=== PATIENT | female | born 1950 | race Caucasian/White ===

== ENCOUNTER 2022-11-11 09:09 | Outpatient (REF) | payer OTHER, SELFPAY ==
[2022-11-11 14:50] LABS: MANUAL DIFF FLAG NO
[2022-11-11 14:59] LABS: Basophils Percent Auto 0.6 % (0-2); Eosinophils Absolute Auto 0.2 X10*3/uL (0.0-0.4); Eosinophils Percent Auto 2.2 % (0-4); Hematocrit 34.4 % (37.0-47.0); Hemoglobin 9.9 g/dl (12.0-16.0); Imm Gran Abs Auto 0.02 X10*3/uL (0.00-0.03); Imm Gran Pct Auto 0.3 % (0.0-0.4); Lymphocytes Absolute Auto 1.7 X10*3/uL (1.2-4.9); Lymphocytes Percent Auto 24.8 % (20-40); Mean Corpuscular HGB Conc 28.8 g/dl (31.0-35.0); Mean Corpuscular Hemoglobin 22.2 pg (27.0-33.0); Mean Corpuscular Volume 77.1 fL (80.0-98.0); Monocytes Absolute Auto 0.4 X10*3/uL (0.1-1.2); Monocytes Percent Auto 6.1 % (2-11); Neutrophils Absolute Auto 4.4 x10*3/uL (2.0-8.3); Platelet Count 166 X10*3/uL (160-400); Red Blood Count 4.46 X10*6/uL (4.20-5.50); Red Cell Distribution Width 16.6 % (11.0-16.0); White Blood Count 6.7 X10*3/uL (4.8-10.8)
[2022-11-11 15:04] LABS: INTERNATIONAL NORM RATIO 1.4 (0.9-1.1); Prothrombin Time 16.2 SEC (10.0-13.1)
[2022-11-11 15:32] LABS: Anion Gap 15 (12-20); Blood Urea Nitrogen 11 mg/dL (9-16); Calcium 9.9 mg/dL (8.4-10.2); Carbon Dioxide 23 mmol/L (22-29); Chloride 108 mmol/L (96-108); Estimated Glomerular Filt Rate > 60; Glucose Fasting 82 mg/dL (60-99); Potassium 3.4 mmol/L (3.3-5.1); Sodium 143 mmol/L (135-145)
== END 2022-11-11 09:10 | disposition home or self-care (01) ==
LOC: HO.CHCLDS 09:09
PROVIDERS: Visit Provider Internal Medicine Cardiovascular Disease
DX: I25.10 Atherosclerotic heart disease of native coronary artery without angina pectoris (principal); I50.9 Heart failure, unspecified
CPT/HCPCS: 36415; 80048; 85025; 85610

== ENCOUNTER 2022-12-18 12:50 | Outpatient (AMB) | payer OTHER, SELFPAY ==
--- NOTE | 2022-12-18 12:54 | MHC.OFFVIS ---
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 Pt's daughter helps nursery school teacher and patient's history. Pt reports she snores loudly and wakes up with very dry mouth. She wakes up gasping and feeling chocking. Pt had a split night sleep study done in 2020 in [place]. The baseline portion of the sleep study was severe degree of sleep apnea. The AHI was 35/hr and oxygen kenyon was 80%. The duration of O2 sat <88 % was 35 min. She was on BiPAP 11/7 cmH2O. Pt states that she slept well with the BiPAP and daytime tiredness has improved. However, her BiPAP was broken about a month ago, and can't use it. She had the original BiPAP from [place] in 2020. Pt reports that she lost about 15 lb since the last sleep study. Sleep questionnaire: Have you ever been diagnosed with a sleep disorder? Yes. AVIVA. Have you ever had a sleep study in the past? Yes, in 2020 in [place]. Have you ever been treated for a sleep disorder? Yes. BiPAP. Do you take medications for a sleep disorder? Melatonin and doxazosin. Do you snore? Yes. Do you wake up gasping at night? Yes. Do you have episodes of apneas? Yes. If yes, are they witnessed? Yes, by her family members. Do you have episodes of nocturnal chest pain or dyspnea? Yes. Do you have difficulty initiating sleep? Yes. Do you have difficulty maintaining sleep? Yes. Do you wake up tired? Yes. Do you have headaches upon awakening? No. Do you wake up with dry mouth or throat? Yes Do you have GERD? Yes. Do you have nocturia? Yes. Do you have nocturnal leg cramps? No. Do you have symptoms of restless legs? No. Do you act out your dreams? No. Sleep hygiene questionnaire: What is your usual sleep routine? Usual bedtime is at 10:30 -11 pm; Usual wake up time is at 4-5 am. Do you take naps? Yes, sometimes. Is your sleep environment cool, dark, and quiet? Yes. Do you exercise? No. Do you take caffeine or other stimulants? Yes, one cup of coffee in the morning. Do you use electronics in bed? Yes, watching TV. What is your work schedule? N/A. Hypersomnolence questionnaire: Do you have daytime tiredness or fatigue? Yes. Do you easily fall asleep when inactive? No. Have you ever had episodes of sudden weakness? No. Have you ever had episodes of sudden weakness associated with strong emotions? No. PFSH Medical History (Updated 12/18/22 @ 13:31 by Maksim Holloway CNP) CAD (coronary artery disease) FHx: total knee replacement Surgical History (Updated 12/18/22 @ 12:57 by Shaniqua Salomon CMA) Stented coronary artery Family History (Updated 12/18/22 @ 12:59 by Shaniqua Salomon CMA) Mother Depression Family/Other Depression Social History (Updated 12/18/22 @ 13:00 by Shaniqua Salomon CMA) Alcohol intake: never Patient Tobacco Use Status: Never used Tobacco Review of Systems Const All systems reviewed & are unremarkable except as noted in HPI and below ENT Reports Normal hearing present Neuro Reports Normal hearing present Physical Exam Vital Signs: Last Vital Signs Pulse 75 12/18/22 13:00 BP 130/80 12/18/22 13:00 Pulse Ox 99 12/18/22 13:00 Oxygen Delivery Method Room Air 12/18/22 13:00 BMI result Body Mass Index 29.9 Const General: cooperative and tired appearing Orientation/consciousness: patient oriented x3 Limitations: language barrier Resp Effort & Inspection: normal respiratory effort and able to speak in complete sentences Neuro General: patient oriented x3, gait normal, moves all extremities and no focal motor deficits Cranial nerves: Yes Bilaterally intact EOM present, Yes Normal facial strength present, Yes Midline tongue present and Yes Normal hearing present Cognition (Neuro): normal cognition Motor exam (neuro): 5/5 motor strength present throughout, Pronator motor function not present and no tremor noted Psych Appearance: grossly normal Mental Status: mental status grossly normal Speech and movement: Normal speech and movement present Affect: normal affect Attitude: cooperative Assessment & Plan Assessment & Plan (1) Insomnia: Code(s): G47.00 - Insomnia, unspecified (2) AVIVA treated with BiPAP: Comment: Severe degree of sleep apnea. AHI was 35/hr and oxygen kenyon was 80%. Code(s): G47.33 - Obstructive sleep apnea (adult) (pediatric) Plan Pt is advised to undergo in lab sleep study to assess for sleep apnea. Will f/u with pt after study to discuss results and appropriate treatment options. Sleep hygiene education provided. Continue to take melatonin 5 mg and doxazosin qHS. Advised patient to limit electronic use before bedtime. Pt to call with any worsening concerns or questions. Orders: Orders RT PSG in-lab sleep study 12/18/22 E11.9 - Type 2 diabetes mellitus without complications, G47.00 - Insomnia, unspecified, G47.33 - Obstructive sleep apnea (adult) (pediatric), I10 - Essential (primary) hypertension, I25.10 - Atherosclerotic heart disease of [place] coronary artery without angina pectoris Coding Level of Care Code New Pt Level 4 (76288) Diagnoses Insomnia G47.00 AVIVA treated with BiPAP G47.33
[2022-12-18 13:00] VITALS: BP 130/80; PULSE 75; O2SAT 99; BMI 29.9
== END 2022-12-18 13:42 | disposition home or self-care (01) ==
PROVIDERS: Visit Provider Nurse Practitioner Family
DX: G47.00 Insomnia, unspecified (principal); G47.33 Obstructive sleep apnea (adult) (pediatric)
CPT/HCPCS: 99204

== ENCOUNTER → 2022-12-18 12:50 | Outpatient (BNVA) | payer OTHER, SELFPAY | PROVIDERS: Visit Provider Nurse Practitioner Family | DX: G47.33 Obstructive sleep apnea (adult) (pediatric) (principal); G47.00 Insomnia, unspecified; Z79.899 Other long term (current) drug therapy | CPT/HCPCS: 99202 ==

== ENCOUNTER → 2022-12-29 19:30 | Outpatient (REF) | payer OTHER, SELFPAY | LOC: HO.SL 19:30 | PROVIDERS: PCP Pediatrics; Visit Provider Nurse Practitioner Family | DX: G47.33 Obstructive sleep apnea (adult) (pediatric) (principal); G47.00 Insomnia, unspecified; I25.10 Atherosclerotic heart disease of native coronary artery without angina pectoris; E11.9 Type 2 diabetes mellitus without complications; I10 Essential (primary) hypertension | CPT/HCPCS: 95810 ==

== ENCOUNTER → 2022-12-29 22:30 | Outpatient (BNV) | payer OTHER, SELFPAY | PROVIDERS: PCP Pediatrics; Visit Provider Psychiatry & Neurology Neurology | DX: G47.33 Obstructive sleep apnea (adult) (pediatric) (principal) | CPT/HCPCS: 95810 ==

== ENCOUNTER 2023-02-24 13:38 | Outpatient (AMB) | payer OTHER, SELFPAY ==
--- NOTE | 2023-02-24 13:39 | A.OFFVIS_ITS ---
Intake Vital Signs 02/24/23 13:41 Weight 156 lb 6 oz BP 150/80 H Blood Pressure Location Lt brachial Position Sitting Pulse 86 Pulse Source Pulse Oximeter Pulse Oximetry (%) 97 Oxygen Delivery Method Room Air Intake Visit Reasons: follow up Intake Note: Pt presents today for AVIVA fup pt is sleeping well . Allergies No Known Allergies Allergy (Verified 02/24/23 13:44) HPI HPI Comments History of Present Illness Details 73 y/o female patient presents with her daughter for follow up of sleep study. Pt underwent split night sleep study. The baseline portion of the study was significant for severe degree of sleep apnea. The AHI was 28/hr and oxygen kenyon was 78%. Pt underwent titration study, the breathing and oxygenation stabilized with CPAP at [id number]. Pt reports she snores loudly and wakes up with very dry mouth. She wakes up gasping and feeling chocking. CPAP ordered in December, patient has not received CPAP yet. [facility] Medical History (Reviewed 02/24/23 @ 13:[address] [facility]) CAD (coronary artery disease) FHx: total knee replacement Surgical History (Reviewed 02/24/23 @ 13:[address] [facility]) Stented coronary artery Family History Mother Depression Family/Other Depression Alcohol intake: never Patient Tobacco Use Status: Never used Tobacco Review of Systems Const All systems reviewed & are unremarkable except as noted in HPI and below ENT Reports Normal hearing present Neuro Reports Normal hearing present Physical Exam Vital Signs: Last Vital Signs Pulse 86 02/24/23 13:41 BP 150/80 H 02/24/23 13:41 Pulse Ox 97 02/24/23 13:41 Oxygen Delivery Method Room Air 02/24/23 13:41 Const General: cooperative and tired appearing Orientation/consciousness: patient oriented x3 Limitations: language barrier Resp Effort & Inspection: normal respiratory effort and able to speak in complete sentences Neuro General: patient oriented x3, gait normal, moves all extremities and no focal motor deficits Cranial nerves: Yes Bilaterally intact EOM present, Yes Normal facial strength present, Yes Midline tongue present and Yes Normal hearing present Cognition (Neuro): normal cognition Motor exam (neuro): 5/5 motor strength present throughout, Pronator motor function not present and no tremor noted Psych Appearance: grossly normal Mental Status: mental status grossly normal Speech and movement: Normal speech and movement present Affect: normal affect Attitude: cooperative Assessment & Plan Assessment & Plan (1) AVIVA on CPAP: Comment: Severe degree of sleep apnea. The AHI was 28/hr and oxygen kenyon was 78% Code(s): G47.33 - Obstructive sleep apnea (adult) (pediatric) Plan CPAP prescription was sent to [facility]. Will f/u of CPAP status. Advised patient to start CPAP at [id number]. Stressed compliance, use CPAP nightly and more than 4 hrs. Wt reduction advised. Coding Level of Care Code Est Pt Level 3 (24916) Diagnoses AVIVA on CPAP G47.33
[2023-02-24 13:41] VITALS: BP 150/80; PULSE 86; O2SAT 97
== END 2023-02-24 14:03 | disposition home or self-care (01) ==
PROVIDERS: PCP Pediatrics; Visit Provider Nurse Practitioner Family
DX: G47.33 Obstructive sleep apnea (adult) (pediatric) (principal)
CPT/HCPCS: 99213

== ENCOUNTER → 2023-02-24 13:38 | Outpatient (BNVA) | payer OTHER, SELFPAY | PROVIDERS: PCP Pediatrics; Visit Provider Nurse Practitioner Family | DX: G47.33 Obstructive sleep apnea (adult) (pediatric) (principal); I25.10 Atherosclerotic heart disease of native coronary artery without angina pectoris; I10 Essential (primary) hypertension; Z95.5 Presence of coronary angioplasty implant and graft | CPT/HCPCS: 99212 ==

== ENCOUNTER 2023-03-12 09:51 | Outpatient (REF) | payer OTHER, SELFPAY ==
[2023-03-12 15:02] LABS: MANUAL DIFF FLAG NO
[2023-03-12 15:12] LABS: Basophils Absolute Auto 0.1 X10*3/uL (0.0-0.2); Basophils Percent Auto 0.9 % (0-2); Eosinophils Absolute Auto 0.4 X10*3/uL (0.0-0.4); Eosinophils Percent Auto 7.4 % (0-4); Hematocrit 30.4 % (37.0-47.0); Imm Gran Abs Auto 0.02 X10*3/uL (0.00-0.03); Imm Gran Pct Auto 0.4 % (0.0-0.4); Lymphocytes Percent Auto 18.4 % (20-40); Mean Corpuscular HGB Conc 26.3 g/dl (31.0-35.0); Mean Corpuscular Hemoglobin 18.7 pg (27.0-33.0); Mean Corpuscular Volume 71.2 fL (80.0-98.0); Monocytes Absolute Auto 0.5 X10*3/uL (0.1-1.2); Monocytes Percent Auto 8.3 % (2-11); Neutrophils Absolute Auto 3.7 x10*3/uL (2.0-8.3); Neutrophils Percent Auto 64.6 % (45-73); Platelet Count 208 X10*3/uL (160-400); Red Blood Count 4.27 X10*6/uL (4.20-5.50); Red Cell Distribution Width 19.5 % (11.0-16.0); White Blood Count 5.7 X10*3/uL (4.8-10.8)
[2023-03-12 15:39] LABS: TSH reflex Free T4 1.38 uIU/mL (0.32-4.0)
== END 2023-03-12 09:52 | disposition home or self-care (01) ==
LOC: HO.CHCLDS 09:51
PROVIDERS: Visit Provider Pediatrics
DX: D50.0 Iron deficiency anemia secondary to blood loss (chronic) (principal); R01.1 Cardiac murmur, unspecified; E11.9 Type 2 diabetes mellitus without complications
CPT/HCPCS: 36415; 84443; 85025

== ENCOUNTER 2023-04-23 10:57 | Outpatient (AMB) | payer OTHER, SELFPAY ==
[2023-04-23 11:02] VITALS: BP 160/78; PULSE 77; O2SAT 98; BMI 29.3
--- NOTE | 2023-04-23 11:02 | MHC.OFFVIS ---
Intake Vital Signs 04/23/23 11:02 Height 5 ft Weight 150 lb 2 oz BMI 29.3 BP 160/78 H Blood Pressure Location Lt brachial Pulse 77 Pulse Source Pulse Oximeter Pulse Oximetry (%) 98 Oxygen Delivery Method Room Air Intake Visit Reasons: 4m follow up AVIVA on CPAP-Confirmed Intake Note: Patient presents for 4 mo fu- AVIVA on CPAP [employer] Professor Required: No Accompanied by: Daughter Allergies No Known Allergies Allergy (Verified 04/23/23 11:06) HPI HPI Comments History of Present Illness Details 73 y/o female patient presents with her daughter for follow up of sleep study. Pt underwent split night sleep study. The baseline portion of the study was significant for severe degree of sleep apnea. The AHI was 28/hr and oxygen kenyon was 78%. Pt underwent titration study, the breathing and oxygenation stabilized with CPAP at [id number]. Pt tried CPAP at [id number], but not tolerated. CPAP pressures changed to 7 cmH2O. The CPAP compliance and therapy response (01/22/23-04/21/23) reviewed. The usage days 93% and the average usage hours 8 hrs and 20 min. The residual AHI was 1.3/hr. Pt reports she feels much better, and sleeps well. She wakes up refreshed and daytime sleepiness has improved. [facility] Medical History CAD (coronary artery disease) FHx: total knee replacement Surgical History Stented coronary artery Family History Mother Depression Family/Other Depression Social History Alcohol intake: never Patient Tobacco Use Status: Never used Tobacco Review of Systems Const All systems reviewed & are unremarkable except as noted in HPI and below ENT Reports Normal hearing present Neuro Reports Normal hearing present Physical Exam Vital Signs: Last Vital Signs Pulse 77 04/23/23 11:02 BP 160/78 H 04/23/23 11:02 Pulse Ox 98 04/23/23 11:02 Oxygen Delivery Method Room Air 04/23/23 11:02 BMI result Body Mass Index 29.3 Const General: cooperative Orientation/consciousness: patient oriented x3 Limitations: language barrier Resp Effort & Inspection: normal respiratory effort and able to speak in complete sentences Neuro General: patient oriented x3, gait normal, moves all extremities and no focal motor deficits Cranial nerves: Yes Bilaterally intact EOM present, Yes Normal facial strength present, Yes Midline tongue present and Yes Normal hearing present Cognition (Neuro): normal cognition Motor exam (neuro): 5/5 motor strength present throughout, Pronator motor function not present and no tremor noted Psych Appearance: grossly normal Mental Status: mental status grossly normal Speech and movement: Normal speech and movement present Affect: normal affect Attitude: cooperative Assessment & Plan Assessment & Plan (1) AVIVA on CPAP: Comment: Severe degree of sleep apnea. The AHI was 28/hr and oxygen kenyon was 78% Code(s): G47.33 - Obstructive sleep apnea (adult) (pediatric) Plan Continue to use CPAP at 7cmH2O as patient experiences good clinical effects. AHI reduced and having good qulaity sleep with daytime symptoms has improved. Stressed compliance, use CPAP nightly and more than 4 hrs. Wt reduction advised. Coding Level of Care Code Est Pt Level 3 (28825) Diagnoses AVIVA on CPAP G47.33
== END 2023-04-23 11:28 | disposition home or self-care (01) ==
PROVIDERS: Visit Provider Nurse Practitioner Family
DX: G47.33 Obstructive sleep apnea (adult) (pediatric) (principal)
CPT/HCPCS: 99213

== ENCOUNTER → 2023-04-23 10:57 | Outpatient (BNVA) | payer OTHER, SELFPAY | PROVIDERS: Visit Provider Nurse Practitioner Family | DX: G47.33 Obstructive sleep apnea (adult) (pediatric) (principal) | CPT/HCPCS: 99212 ==

== ENCOUNTER 2023-05-09 09:20 | Outpatient (REF) | payer OTHER, SELFPAY ==
[2023-05-09 14:50] LABS: MANUAL DIFF FLAG NO
[2023-05-09 15:01] LABS: Basophils Percent Auto 0.6 % (0-2); Eosinophils Absolute Auto 0.2 X10*3/uL (0.0-0.4); Eosinophils Percent Auto 3.3 % (0-4); Hematocrit 37.2 % (37.0-47.0); Hemoglobin 10.6 g/dl (12.0-16.0); Imm Gran Abs Auto 0.02 X10*3/uL (0.00-0.03); Imm Gran Pct Auto 0.4 % (0.0-0.4); Lymphocytes Absolute Auto 1.1 X10*3/uL (1.2-4.9); Mean Corpuscular HGB Conc 28.5 g/dl (31.0-35.0); Mean Corpuscular Hemoglobin 21.9 pg (27.0-33.0); Monocytes Absolute Auto 0.3 X10*3/uL (0.1-1.2); Monocytes Percent Auto 5.6 % (2-11); Neutrophils Absolute Auto 3.8 x10*3/uL (2.0-8.3); Neutrophils Percent Auto 70.1 % (45-73); Platelet Count 183 X10*3/uL (160-400); Red Blood Count 4.83 X10*6/uL (4.20-5.50); White Blood Count 5.4 X10*3/uL (4.8-10.8)
[2023-05-09 15:14] LABS: Iron 84 mcg/dL (30-160); Percent Iron Saturation 24 % (15-50); Total Iron Binding Capacity 356 mcg/dL (228-428); Unsaturated Iron Binding 272 ug/dL
[2023-05-09 15:57] LABS: Folate 14.6 ng/mL (> or = 4.0); Vitamin B12 157 pg/mL (200-900)
== END 2023-05-09 09:21 | disposition home or self-care (01) ==
LOC: HO.CHCLDS 09:20
PROVIDERS: Visit Provider Pediatrics
DX: D50.0 Iron deficiency anemia secondary to blood loss (chronic) (principal)
CPT/HCPCS: 36415; 82607; 82746; 83540; 85025

== ENCOUNTER 2023-08-06 09:15 | Outpatient (REF) | payer OTHER, SELFPAY ==
[2023-08-06 15:05] LABS: Alanine Aminotransferase 12 U/L (0-31); Albumin Level 4.3 g/dL (3.5-5.0); Alkaline Phosphatase 49 U/L (39-117); Anion Gap 14 (12-20); Aspartate Amino Transferase 17 U/L (5-31); Bilirubin Direct 0.1 mg/dL (0.0-0.5); Bilirubin Total 0.3 mg/dL (0.0-1.0); Blood Urea Nitrogen 25 mg/dL (9-16); Calcium 9.5 mg/dL (8.4-10.2); Carbon Dioxide 27 mmol/L (22-29); Chloride 105 mmol/L (96-108); Cholesterol 150 mg/dL (<200); Estimated Glomerular Filt Rate > 60; Glucose Random 88 mg/dL (60-115); HDL Cholesterol 62 mg/dL (>40); LDL Cholesterol Calculated 67 mg/dL (<100); Potassium 4.1 mmol/L (3.3-5.1); Sodium 142 mmol/L (135-145); Total Protein 7.4 g/dL (6.5-8.0); Triglycerides 109 mg/dL (<150)
[2023-08-06 15:29] LABS: Creatinine Urine 46.75 mg/dL; Microalbumin Urine < 5.0 mg/L
== END 2023-08-06 09:16 | disposition home or self-care (01) ==
LOC: HO.CHCLDS 09:15
PROVIDERS: Visit Provider Pediatrics
DX: I10 Essential (primary) hypertension (principal); E11.59 Type 2 diabetes mellitus with other circulatory complications
CPT/HCPCS: 36415; 80048; 80061; 80076; 82043; 82570

== ENCOUNTER 2024-01-14 11:33 | Outpatient (REF) | payer OTHER, SELFPAY ==
[2024-01-14 14:13] LABS: MANUAL DIFF FLAG NO
[2024-01-14 14:38] LABS: Basophils Percent Auto 0.6 % (0-2); Eosinophils Absolute Auto 0.1 X10*3/uL (0.0-0.4); Eosinophils Percent Auto 1.9 % (0-4); Hematocrit 38.2 % (37.0-47.0); Hemoglobin 12.2 g/dl (12.0-16.0); Imm Gran Abs Auto 0.03 X10*3/uL (0.00-0.03); Imm Gran Pct Auto 0.5 % (0.0-0.4); Lymphocytes Absolute Auto 1.3 X10*3/uL (1.2-4.9); Lymphocytes Percent Auto 20.4 % (20-40); Mean Corpuscular HGB Conc 31.9 g/dl (31.0-35.0); Mean Corpuscular Hemoglobin 26.9 pg (27.0-33.0); Mean Corpuscular Volume 84.3 fL (80.0-98.0); Mean Platelet Volume 13.6 fL (9.4-12.3); Monocytes Absolute Auto 0.4 X10*3/uL (0.1-1.2); Monocytes Percent Auto 5.7 % (2-11); Neutrophils Absolute Auto 4.5 x10*3/uL (2.0-8.3); Neutrophils Percent Auto 70.9 % (45-73); Platelet Count 161 X10*3/uL (160-400); Red Blood Count 4.53 X10*6/uL (4.20-5.50); Red Cell Distribution Width 14.3 % (11.0-16.0); White Blood Count 6.4 X10*3/uL (4.8-10.8)
[2024-01-14 15:11] LABS: Iron 97 mcg/dL (30-160); Percent Iron Saturation 29 % (15-50); Total Iron Binding Capacity 331 mcg/dL (228-428); Unsaturated Iron Binding 234 ug/dL
[2024-01-14 15:16] LABS: Folate > 20.0 ng/mL (> or = 4.0); Vitamin B12 > 2000 pg/mL (200-900)
== END 2024-01-14 11:34 | disposition home or self-care (01) ==
LOC: HO.CHCLDS 11:33
PROVIDERS: Visit Provider Pediatrics
DX: M85.80 Other specified disorders of bone density and structure, unspecified site (principal); E53.8 Deficiency of other specified B group vitamins; M25.552 Pain in left hip; Z78.0 Asymptomatic menopausal state
CPT/HCPCS: 36415; 82306; 82607; 82746; 83540; 85025

== ENCOUNTER 2024-03-31 10:00 | Outpatient (AMB) | payer OTHER, SELFPAY ==
--- NOTE | 2024-03-31 10:23 | MHC.OFFVIS ---
Vital Signs 03/31/24 10:24 Height 5 ft Weight 157 lb BMI 30.7 BP 124/76 Blood Pressure Location Rt brachial Position Sitting Intake Visit Reasons: 1 yr f/u for AVIVA Intake Note: Patient presents for 1 year follow up Allergies No Known Allergies Allergy (Verified 03/31/24 10:25) Medication List - Last Reconciled 03/31/24 by Ronald Woods PA-C carvedilol 25 mg PO BID cilostazol 100 mg PO BID clopidogrel 75 mg PO DAILY doxazosin 4 mg PO BEDTIME [id number]-theeukrdb 12.5-2.5-1,000 mg ER (Trijardy XR) 2 tabs PO DAILY ferrous sulfate (FeroSul) mg PO folic acid 1 mg PO DAILY gabapentin 800 mg PO BEDTIME hydralazine 50 mg PO TID hydrochlorothiazide 25 mg PO DAILY losartan 100 mg PO DAILY melatonin 5 mg PO .at night multivitamin (Daily Multi-Vitamin tablet) 1 tab PO DAILY pantoprazole 40 mg PO DAILY rivaroxaban (Xarelto) 2.5 mg PO BID rosuvastatin 40 mg PO DAILY HPI Comments Details: 73 y/o female patient presents with her daughter for follow up of sleep study. She is having mask difficulties with the nose pillow, doesn't work well for her, dries out the mouth, causing her to have poor sleep. She goes to bed at 9pm, has 2 bathroom trips at night, goes back to sleep and has difficulty going back to sleep. She washes all equipment and changes filters as needed. Pt reports she feels much better, and sleeps well. She wakes up refreshed and daytime sleepiness has improved overall, however continues to be frustrated with the mask. She lives with her daughter and has help with all her ADLs. Mood is good, memory is okay. Denies any falls. Pain management Apr 15, 2024, [facility]. The CPAP compliance and therapy response (12/31/23-03/29/24) reviewed. The usage days 81 and 90% and the average usage hours 7 hrs and 14 min. The residual AHI was 4.8. Avg.Pressures are [id number] Avg. leaks 40 L/min [facility] Medical History CAD (coronary artery disease) FHx: total knee replacement Surgical History Stented coronary artery Family History Mother Depression Family/Other Depression Social History Alcohol intake: never Patient Tobacco Use Status: Never used Tobacco Review of Systems Const All systems reviewed & are unremarkable except as noted in HPI and below Physical Exam Vital Signs: Last Vital Signs BP 124/76 03/31/24 10:24 BMI result Body Mass Index 30.7 Const General: cooperative, comfortable and no acute distress Nutritional Appearance: average body habitus Orientation/consciousness: patient oriented x3 Resp Effort & Inspection: normal respiratory effort and able to speak in complete sentences Neuro General: patient oriented x3 Psych Attitude: cooperative Insight: Good insight present (Psych) Judgement: Good judgement present (Psych) Results Reviewed Results Reviewed: The CPAP compliance and therapy response (12/31/23-03/29/24) reviewed. The usage days 90% and the average usage hours 7 hrs and 14 min. The residual AHI was 4.8. Press [id number] Nose pillow coming undone, needs new mask. Assessment & Plan Assessment & Plan (1) AVIVA on CPAP: Comment: Severe degree of sleep apnea. The AHI was 28/hr and oxygen ken[place] was 78% Code(s): G47.33 - Obstructive sleep apnea (adult) (pediatric) Category: Medical (2) Insomnia: Code(s): G47.00 - Insomnia, unspecified Category: Medical (3) Neck pain on right side: Code(s): M54.2 - Cervicalgia Category: Medical Plan Sleep Apnea Mask Fitting as nose pillows are not comfortable. Continue to use APAP [id number] as patient experiences good clinical effects. Stressed compliance, use CPAP nightly and more than 4 hours per night, also while napping during the day. PT for neck pain and limited ROM on Extension and rotation to the right. Will follow up in 6 months, call the office if you have any concerns or message us on the portal. Orders: Orders PT Evaluation and Treatment Today M54.2 - Cervicalgia Coding Level of Care Code Est Pt Level 3 (30197) Diagnoses AVIVA on CPAP G47.33 Insomnia G47.00 Neck pain on right side M54.2
[2024-03-31 10:24] VITALS: BP 124/76; BMI 30.7
== END 2024-03-31 10:50 | disposition home or self-care (01) ==
PROVIDERS: Absent Provider Psychiatry & Neurology Neurology; PCP Pediatrics; Visit Provider Physician Assistant Medical
DX: G47.33 Obstructive sleep apnea (adult) (pediatric) (principal); G47.00 Insomnia, unspecified; M54.2 Cervicalgia
CPT/HCPCS: 99213

== ENCOUNTER → 2024-03-31 10:00 | Outpatient (BNVA) | payer OTHER, SELFPAY | PROVIDERS: Absent Provider Psychiatry & Neurology Neurology; PCP Pediatrics; Visit Provider Physician Assistant Medical | DX: G47.33 Obstructive sleep apnea (adult) (pediatric) (principal); G47.00 Insomnia, unspecified; M54.2 Cervicalgia; Z99.89 Dependence on other enabling machines and devices | CPT/HCPCS: 99212 ==

== ENCOUNTER 2024-12-06 10:15 | Outpatient (AMB) | payer OTHER, SELFPAY ==
--- NOTE | 2024-12-06 10:28 | MHC.OFFVIS ---
Vital Signs 12/06/24 10:29 Height 5 ft Weight 155 lb 4 oz BMI 30.3 BP 116/72 Blood Pressure Location Lt brachial Position Sitting Pulse 61 Pulse Source Pulse Oximeter Pulse Oximetry (%) 96 Oxygen Delivery Method Room Air Intake Visit Reasons: 6m follow up AVIVA Intake Note: Patient presents follow up AVIVA. COmpliance in chart(/90days, >=4hrs-95%, Average usage-6hrs 57min, Med pressure-12, Med leaks-18.7, AHI-2.5). Supervisor [employer] Required: Yes Supervisor [employer] Language: Automotive Hardware Engineer Services: Supervisor [employer] Offered & Declined Supervisor [employer] Name: daughter Accompanied by: Daughter Allergies No Known Allergies Allergy (Verified 12/06/24 10:32) HPI Comments Details: 74 y/o female patient presents for a f/u of aviva. Flora her daughter is here today and helps with history. The CPAP compliance and therapy response (08/2024- 11/2024). The usage days 90/90 and > average usage hours 6 hrs and 57 min. Med press [id number], med leaks 18.7 The residual AHI was 2.5 She washes her mask, rinses hoses, changes filters and fills reservoir with water daily. She now has a new nose pillow / nose mask and her mouth gets very dry at night, causing her to have poor sleep and choke, cough. She goes to bed at 9pm, has 2 bathroom trips at night, goes back to sleep and has difficulty staying asleep. Pt reports she feels much better when she wakes up refreshed and sleep has improved. She does not take naps through out the day. She continues to be very frustrated with her nose pillow mask, will send her for a fitting today and reviewed getting chin straps to close the mouth. Also explained to patient to use otc xylitol tabs at night to increase mucosal lubrication and adjust temperatures on the cpap settings. She lives with her daughter and has help with all her ADLs. Diet and mood are stable. 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 Memory is poor at baseline, she was prescribed Aricept for cognitive deficits by her Psychiatrist. We reviewed labs today. [facility] Medical History CAD (coronary artery disease) FHx: total knee replacement Surgical History Stented coronary artery Family History Mother Depression Family/Other Depression Social History Alcohol intake: never Patient Tobacco Use Status: Never used Tobacco Physical Exam Vital Signs: Last Vital Signs Pulse 61 12/06/24 10:29 BP 116/72 12/06/24 10:29 Pulse Ox 96 12/06/24 10:29 Oxygen Delivery Method Room Air 12/06/24 10:29 BMI result Body Mass Index 30.3 Const General: cooperative, comfortable and no acute distress Nutritional Appearance: average body habitus Orientation/consciousness: patient oriented x3 Eyes Pupils: Equal, round and reactive pupils present Resp Effort & Inspection: normal respiratory effort and able to speak in complete sentences Neuro Other: uses cane to ambulate, gait is unbalanced General: patient oriented x3 and moves all extremities Cranial nerves: Yes Facial sensation intact/muscles of mastication intact, Yes Equal, round and reactive pupils present, Yes Normal accommodation reflex present, Yes Normal facial strength present, Yes Midline tongue present, Yes Ability to bilaterally rotate head present and Yes Ability to bilaterally elevate shoulders present Gait exam (Neuro): Antalgic gait present and Assistive device used Motor exam (neuro): Abnormal motor strength present and Abnormal muscle tone present Coordination: [id number] test normal Psych Appearance: grossly normal Speech and movement: Other speech and movement exam findings present (Psych) (language barrier) Attitude: cooperative Thought process: Normal thought process present Thought content: Normal thought content present Orientation What is the (year) (season) (date) (day) (month)?: year, season, day and month Where are we (state) (county) (town or city) (hospital) (floor)?: town or city and floor Registration Name of 3 unrelated objects clearly and slowly, then ask patient to repeat all 3 of them. (1st repeat determines score. Make sure they can repeat all three): object 1, object 2 and object 3 Attention & Calculation (CHOOSE ONE) Spell WORLD backwards (DLROW): 5 letters Recall Ask patient to repeat the 3 items from question #3.: object 1, object 2 and object 3 Language Show patient a wristwatch & ask what it is. Repeat for pencil.: watch and pencil Ask the patient to repeat the phrase 'No ifs, ands, or buts' after you.: incorrect (language barrier) Ask the patient to 'take a piece of paper with their right hand' 'fold paper in half' 'place paper on floor': take paper in right hand, fold paper in half and place paper on floor Print the sentence 'CLOSE YOUR EYES' on a piece. If patient actually closes eyes then score.: followed written direction Give patient a blank piece of paper & ask to write a sentence. Score if it contains a noun & verb.: sentence contains subject and verb Ask patient to copy figure of intersecting pentagons exactly. Score if all 10 angles & 2 intersects are included.: all 10 angles present & 2 are intersected Score Score: 25 Results Reviewed Results Reviewed: MMSE 25/30 today HST severe aviva, however compliant on cpap therapy. The CPAP compliance and therapy response (08/2024- 11/2024). The usage days 90/90 and > average usage hours 6 hrs and 57 min. Med press [id number], med leaks 18.7 The residual AHI was 2.5 She washes her mask, rinses hoses, changes filters and fills reservoir with water daily. Assessment & Plan Assessment & Plan (1) AVIVA on CPAP: Comment: Severe degree of sleep apnea. The AHI was 28/hr and oxygen kenyon was 78% Code(s): G47.33 - Obstructive sleep apnea (adult) (pediatric) Category: Medical (2) Excessive daytime sleepiness: Code(s): G47.19 - Other hypersomnia Category: Medical (3) Forgetfulness: Comment: mmse is 25 Code(s): R68.89 - Other general symptoms and signs Category: Medical (4) Insomnia: Comment: continue melatonin 5 mg po 3 hours prior to bedtime. Code(s): G47.00 - Insomnia, unspecified Category: Medical Qualifiers: Insomnia type: unspecified Qualified Code(s): G47.00 - Insomnia, unspecified (5) Neck pain on right side: Comment: PT Code(s): M54.2 - Cervicalgia Category: Medical Plan Severe aviva on cpap, will write rx for chins straps as her mouth gets dry, she will purchase xylitol otc. Forgetfulness, MMSE is 25, will assess via MRI in future if continues to decline. PT for neck pain. RLS symptoms magnesium 400mg at night once labs are completed. Compliance 3month- f/u Orders: Orders Complete Blood Count no Diff Today G47.19 - Other hypersomnia, G47.33 - Obstructive sleep apnea (adult) (pediatric), R68.89 - Other general symptoms and signs Comprehensive Met. Panel Today G47.19 - Other hypersomnia, G47.33 - Obstructive sleep apnea (adult) (pediatric), R68.89 - Other general symptoms and signs Ferritin Today G47.19 - Other hypersomnia, G47.33 - Obstructive sleep apnea (adult) (pediatric), R68.89 - Other general symptoms and signs Homocysteine Today G47.19 - Other hypersomnia, G47.33 - Obstructive sleep apnea (adult) (pediatric), G47.9 - Sleep disorder, unspecified, R53.83 - Other fatigue, R68.89 - Other general symptoms and signs Vitamin B12 and Folate Today G47.19 - Other hypersomnia, G47.33 - Obstructive sleep apnea (adult) (pediatric), R68.89 - Other general symptoms and signs TSH reflex Free T4 Today G47.19 - Other hypersomnia, G47.33 - Obstructive sleep apnea (adult) (pediatric), R68.89 - Other general symptoms and signs Magnesium Today G47.19 - Other hypersomnia, G47.33 - Obstructive sleep apnea (adult) (pediatric), R68.89 - Other general symptoms and signs Hemoglobin A1c Today G47.19 - Other hypersomnia, G47.33 - Obstructive sleep apnea (adult) (pediatric), R68.89 - Other general symptoms and signs Lipid Panel with Reflex Today G47.19 - Other hypersomnia, G47.33 - Obstructive sleep apnea (adult) (pediatric), R68.89 - Other general symptoms and signs Vitamin D 25-OH Total Today G47.19 - Other hypersomnia, G47.33 - Obstructive sleep apnea (adult) (pediatric), R68.89 - Other general symptoms and signs Methylmalonic Acid Today G47.19 - Other hypersomnia, G47.33 - Obstructive sleep apnea (adult) (pediatric), G47.9 - Sleep disorder, unspecified, R53.83 - Other fatigue, R68.89 - Other general symptoms and signs MR head/brain wo/w con Today G47.19 - Other hypersomnia, G47.33 - Obstructive sleep apnea (adult) (pediatric), R68.89 - Other general symptoms and signs Patient Instructions: Sleep Hygiene provided: set a scheduled bedtime and wake time to help regulate the circadian rhythm and balance the release of pituitary hormones. Sleep in a dark room, temperatures below 68 degrees, and no devices n bed. Limit caffeinated products 6 hours prior to bed, and limit fluids 2-4 hours prior to bed. Gentle night yoga, diffusing essential oils, and playing soft music can be relaxing. Coding Level of Care Code Est Pt Level 4 (80874) Complex EM visit Add On G2211 Diagnoses AVIVA on CPAP G47.33 Excessive daytime sleepiness G47.19 Forgetfulness R68.89 Insomnia, unspecified type G47.00 Insomnia type: unspecified Neck pain on right side M54.2
[2024-12-06 10:29] VITALS: BP 116/72; PULSE 61; O2SAT 96; BMI 30.3
--- OUTSIDE RECORDS SUMMARY | 2024-12-06 10:52 | XMS_ITS | Encounter Summary ---
Author Organization [employer] Address [address] [place] [address] Care Team Providers Care Saw Grinder Name Role Phone Leslie Riojas MD Primary Care Provider [phone] Encounter Details Date Type Department Care Team (Late st Contact Info) Description 07/03/2023 Orders Only [facility] MED & PEDS [address], [place] [id number] Ashley Slaughter, PharmD [address] [place] [address] Social History Tobacco Use Types Packs/Day Years Used Date Smoking Tobacco: Former Cigarettes Q uit: 04/28/1994 Passive Smoke Exposure: Never Smokeless Tobacco: Never Alcohol Answer Date Recorded Frequency of Alcohol Consumption Not on file 06/25/2023 Average Number of Drinks Not on file 024 Frequency of Binge Drinking Not on file 05/30 Score 0 06/25/2023 Depression Answer Date Recorded Patient Health Questionnaire-9 Score 6 06/25/2023 Patient Health Questionnaire-9 Score 6 06/25/2023 Last PHQ-9: Questionnaire Data Not on file 0 06/25/2023 Housing Stability Answer Date Recorded What is your housing situation today? I have sara linares 06/25/[address] you li ve. Do you have problems with any of the following? None of the above 06/25/2023 Food Insecurity Answer Date Recorded Within the past 12 months, y ou worried that your food would run out before you got money to buy more: Never True 06/25/2023 Within the past 12 months,th e food you bought just didn't last and you didn't have enough money to get more: Never True Transportation Answer Date Recorded In the past 12 months, has l ack of transportation kept you from medical appts, meetings, work or from getting things needed for daily living? No 06/25/2023 Utilities Answer Date Recorded In the past 12 months, has t he electric, gas, oil or water company threatened to shut off services in your home? No 06/25/2023 Depression Answer Date Recorded Patient Health Questionnaire-2 Score 3 06/25/2023 Comments No Sex and Gender Information Value Date Recorded Sex Assigned at Female 05/02/2022 12:24 PM EST Legal Sex Female 12:19 PM EST Gender Identity Female 05/02/2022 12:24 PM EST Sexual Orientation Straight 05/02/2022 12 :24 PM EST documented as of this encounter Plan of Treatment Upcoming Encounters Date Type Department Care Team (Late st Contact Info) Description 12/23/2024 10:00 AM EDT Office Visit [facility] MED & PEDS [address] [place] [address] Leslie Riojas MD [address] [place] [address] 02/16/2025 10:00 AM EDT Office Visit [facility] OPTOMETRY [address] [place] [address] Earle, Keysha, OD [address] [place] [address] 03/21/2025 10:00 AM EST Office Visit [facility] ADULT DENTAL [address] [place] [address] Leila Otto documented as of this encounter Goals Goal Patient Goal Type Associated Problems Recent Progress Patient-Stated? Author Blood Pressure < 140/90 Blood Pressure 114/76(2024 9:50 AM EDT) No Von Cope, PharmD Patient will adhere to medication regimen General No Von Cope, PharmD Hemoglobin A1c < 7 Result Component 6.1( 11:27 AM EST) No Von Cope, PharmD documented as of this encounter Visit Diagnoses Not on filedocumented in this encounter Additional Health Concerns Assessment Noted Time PHQ-9 Depression Total Score: 6 06/25/19 24 10:18 AM EST documented as of this encounter Care Teams Saw Grinder Relationship Specialty Start Date End Date Leslie Riojas MD [address] [place] [address] PCP - General Internal Medicine 05/09/22 documented as of this encounter
--- OUTSIDE RECORDS SUMMARY | 2024-12-06 10:52 | XMS_ITS | Clinical Summary ---
Author Organization [facility] ity Address [address] [place] [address] Care Team Providers Care Seed Corn Manager Production Name Role Phone Unavailable Primary Care Provider Unavailabl e Social History Tobacco Use Types Packs/Day Years Used Date Smoking Tobacco: Never Assessed Comments Unknown Sex and Gender Information Value Date Recorded Sex Assigned at Not on file Legal Sex Female 8:13 PM EST Gender Identity Not on file Sexual Orientation Not on file Plan of Treatment Health Maintenance Due Date Last Done Comments Breast Cancer Screening 1950 DTaP,Tdap,and Td Vaccines (1 - Tdap) 01/01/1971 Pneumococcal Vaccine: 50+ Ye ars (1 of 1 - PCV) 01/01/2002 Zoster Vaccines (1 of 2) 01/01/2002 Colorectal Cancer Screening: Colonoscopy 05/22/2023 Falls Risk Assessment 05/22/2023 Hepatitis C Screening 05/22/2023 Osteoporosis Screening (Bone Density Screening) 05/22/2023 Social Influencers of Health Screening 05/22/2023 COVID-19 Vaccine ( - 2023-2 5 season) 2023 Depression Screening 04/28/2024 Influenza Vaccine (#1) 2024 RSV Immunization Adult Patie nts (1 - 1-dose 75+ series) 01/01/2027 HIB Vaccines Aged Out No longer eligi ble based on patient's age to complete this topic HPV Vaccines Aged Out No longer eligi ble based on patient's age to complete this topic Hepatitis A Vaccines Aged Out No long er eligible based on patient's age to complete this topic Hepatitis B Vaccines Aged Out No long er eligible based on patient's age to complete this topic IPV Vaccines Aged Out No longer eligi ble based on patient's age to complete this topic MMR Vaccines Aged Out No longer eligi ble based on patient's age to complete this topic Meningococcal ACWY Vaccine Aged Out N o longer eligible based on patient's age to complete this topic Meningococcal B Vaccine Aged Out No l onger eligible based on patient's age to complete this topic RSV Immunization Patients Un yaima 20 months Aged Out No longer eligible b ased on patient's age to complete this topic Varicella Vaccines Aged Out No longer eligible based on patient's age to complete this topic
--- OUTSIDE RECORDS SUMMARY | 2024-12-06 10:52 | XMS_ITS | Clinical Summary ---
Author Organization [facility] Address [address] [place] [phone] Phone Care Team Providers Care Tow Truck Dispatcher Name Role Phone Leslie Riojas MD Primary Care Provider [phone] Allergies No known active allergies Medications carvedilol (COREG) 12.5 MG tablet Take 12.5 mg by mouth 2 (two) times a day with meals. Active pantoprazole (PROTONIX) 40 MG tablet Take 40 mg by mouth daily. Active gabapentin (NEURONTIN) 300 MG capsule Take 800 mg by mouth 2 (two) times a day. Active empagliflozin-met FORMIN (SYNJARDY) 12.5-500 mg per tablet Take 1 tablet by mouth 2 (two) times a day with meals. Active azelastine (ASTELIN) 137 mcg (0.1 %) nasal spray 1 spray by Nasal route 2 (two) times a day. Use in each nostril as directed Active losartan (COZAAR) 50 MG tablet Take 50 mg by mouth daily. Active gabapentin (NEURONTIN) 800 MG tablet Take 800 mg by mouth daily. Active doxazosin (CARDURA) 4 MG tablet Take 4 mg by mouth nightly at bedtime. Active cilostazol (PLETAL) 100 MG tablet Take 100 mg by mouth 2 (two) times a day. Active rivaroxaban (XARELTO) 10 mg tablet Take 2.5 mg by mouth 2 (two) times a day. Active empaglifloz-linag lip-metformin (TRIJARDY XR) 12.5-2.5-1,000 mg TBph Take by mouth. Active rosuvastatin (CRESTOR) 40 MG tablet Take 40 mg by mouth daily. Active aspirin 81 MG EC tablet Take 81 mg by mouth daily. Active hydrALAZINE (APRESOLINE) 50 MG tablet Take 50 mg by mouth 3 (three) times a day. Active metoprolol succinate (TOPROL-XL) 200 MG 24 hr tablet Take 200 mg by mouth daily. Active losartan-hydroCHL OROthiazide (HYZAAR) 100-25 mg per tablet Take 1 tablet by mouth daily. Active folic acid (FOLVITE) 1 MG tablet Take 1 mg by mouth daily. Active pediatric multivitamin (POLY--SERVANDO) chewable tablet Take 1 tablet by mouth daily. Active melatonin 5 mg Tab Take by mouth nightly at bedtime. Active clopidogrel (PLAVIX) 75 mg tablet Take 1 tablet (75 mg total) by mouth daily. 90 tablet 11 Active Social History Tobacco Use Types Packs/Day Years Used Date Smoking Tobacco: Former Cigarettes Q uit: 1992 Smokeless Tobacco: Never Tobacco Cessation:Counseling Given: Not Answered Alcohol Use Standard Drinks/Week Comments Not Currently 0 (1 standard drink = 0.6 oz pur e alcohol) Education Answer Date Recorded Are you interested in more education? Not on jarrett e 10/28/2022 Are you concerned about learning? Not on file 10/28/2022 No 10/28/2022 No 10/28/2022 Digital Access Answer Date Recorded No 10/28/2022 No 10/28/2022 Reliable internet access at home? Not on file 10/28/2022 Device with a working camera? Not on file Comments Unknown Sex and Gender Information Value Date Recorded Sex Assigned at Not on file Legal Sex Female 1:47 PM EDT Gender Identity Not on file Sexual Orientation Not on file Last Filed Vital Signs Vital Sign Reading Time Taken Comments Blood Pressure 135/65 11/18/2022 1:30 PM EDT Pulse 71 11/18/2022 1:30 PM EDT Temperature - - Respiratory Rate 12 11/18/2022 1:30 PM EDT Oxygen Saturation 100% 11/18/2022 1:30 PM EDT Inhaled Oxygen Concentration - - Weight 71.7 kg (158 lb) 11/13/2022 2:44 PM EDT Height 152.4 cm (5') 11/13/2022 2:44 PM EDT Body Mass Index 30.86 11/13/2022 2:44 PM EDT Plan of Treatment Health Maintenance Due Date Last Done Comments CREATININE LEVEL 1950 LIPID PANEL 1950 DEPRESSION SCREENING 1964 SMOKING Hx and SMOKELESS TOBACCO SCREENING 01/01/1965 HEPATITIS C SCREENING 01/01/1970 MAMMOGRAM 1992 COLOGUARD 01/01/1997 COLONOSCOPY 01/01/1997 COLORECTAL CANCER SCREENING 01/01/1997 FIT TEST 01/01/1997 FOBT 01/01/1997 SIGMOIDOSCOPY 01/01/1997 VIRTUAL COLONOSCOPY 01/01/1997 RSV VACCINE (1 - Risk 60-74 years 1-dose series) 2012 OSTEOPOROSIS SCREENING INITIAL (ONE-TIME) 01/01/2017 POTASSIUM LEVEL 09/14/2023 09/13/2022 COVID-19 VACCINE (2023- season) 2023 10/09/2021, 01/19/2021, 07/18/2020, Additional history exists Adult Td,Tdap Booster 10/08/2032 10/08/2022 ZOSTER VACCINES Completed 09/10/2022, 07/01/2022 PNEUMOCOCCAL VACCINES (50+ years) Completed 10/08/2022 HEPATITIS A VACCINES Aged Out No long er eligible based on patient's age to complete this topic HIB VACCINES Aged Out No longer eligi ble based on patient's age to complete this topic MENINGOCOCCAL VACCINES (ACWY) Aged Out No longer eligible based on patient's age to complete this topic MENINGOCOCCAL VACCINES (B) Aged Out N o longer eligible based on patient's age to complete this topic Medical Devices Implanted Type Area Gyro Mechanic Device Identifier Shelf Expiration Date Model / Serial / Lot Stent Absolute Pro 10mm 40mm 80cm .035in Otw Vascular Nickel Titanium Self-Expanding External Iliac Artery Tri Axial Radiopaque Marker Sterile Disp - [id number] Implanted:Qty: 1 on 11/18/2022 by Kal Maradiaga DO at [facility] Stent Arterial [employer] [id number] 05/28/2023 [id number] / / [id number] Description:Rt Common iliac artery stent Insurance MEDICARE REPLACEMENT MEDICARE REPLACEMENT MEDICARE REPLACEMENT O MEDICARE REPLACEMENT MEDICARE REPLACEMENT MEDICARE REPLACEMENT Advance Directives For more information, please contact: [phone] (9AM - 5PM [facility], Friday-Friday) * Full Code (Latest Code Status on File) Date Activated Date Inactivated Comments 11/18/2022 6:55 AM Question Answer Comments Code Status Confirmed With: Patient Code Status Communicated To: Other (specify belo w) Code Discussion Comments: Per [facility] Care Teams Tow Truck Dispatcher Relationship Specialty Start Date End Date Leslie Riojas MD [address] [place] [id number] PCP - General Internal Medicine 10/28/22 Additional Source Comments The information contained in this document represents components of the legal health record. It is not the complete legal health record.[facility]
--- OUTSIDE RECORDS SUMMARY | 2024-12-06 10:53 | XMS_ITS | Patient Health Record ---
Author Organization Kolton Stafford MD PA Address [address] [place], [place] [id number] Care Team Providers Care Cross Country And Track And Field Coach Name Role Phone Kolton Stafford Primary Care Provider Reason For Referral No Information Medications Medication SIG (Take, Route, Frequency, Duration) Notes Start Date End Date Status amLODIPine Besylate 5 MG 1 tablet Orally Once a day; Duration: 90 Active Folic Acid 1 MG 1 tablet Orally Once a day; Duration: 90 Active Pantoprazole Sodium 40 MG 1 tablet Orall y Once a day Active Rosuvastatin Calcium 20 MG 1 tablet Oral ly Once a day Active One Touch Ultra Blue test Strips For Blod Sugar Testing TEST STRIPS as directed Once a day; Duration: 90 days 04/18/2020 Active Metoprolol Succinate 100 MG 1 capsule Or ally Once a day Active Diclofenac Sodium 75 MG 1 tablet Orally Twice a day; Duration: 10 days 05/09/2020 Active Glimepiride 2 MG 1 tablet with breakf ast or the first main meal of the day Orally Once a day; Duration: 90 Active Metoprolol Succinate ER 100 MG Oral; Duration: 90 Active Telmisartan 80 MG 1 tablet Orally Once a day Active Escitalopram Oxalate 10 MG Oral Active Prodigy Lancets 21G 1 as directed as dir ected once a day; Duration: 90 days Active Gabapentin 800 MG 1 tablet Orally twic e a day Active Diclofenac Sodium 1 % 1 application Floyd sdermal three times a day Active metFORMIN HCl 1000 MG 1 tablet with a me al Orally Twice a day 01/10/2020 Active Ferrous Sulfate 325 (65 Fe) MG 1 tablet Orally Once a day 04/11/2020 Active Clotrimazole-Betamethasone 1-0.05 % 1 application Externally Twice a day Active Aspirin Adult Low Strength 81 MG 1 tablet Orally Once a day Active Prodigy Blood Glucose Monitor 1 as directed as directed once a day; Duration: 90 days Active Immunizations Vaccine Route Administration Date Status Comme nts Influenza 2019 IM Intramuscular 02/09/2020 Administered Matthew armando tolerated well, covered injection area with a band aid Social History Tobacco Use: Social History Observation Description Date Details (start date - stop date) Former Smoker NA - NA Alcohol Screen Question Answer Notes Did you have a drink containing alcohol in the p ast year? No Points 0 Interpretation Negative Smoking Question Answer Notes Are you a: former smoker started at age [age] , About 1 PPD stopped at age 49 Problems Problem Type SNOMED Code ICD Code Onset Dates Problem Status W/U Status Risk Notes Problem Anemia (670794201) Anemia, unspecified (D64.9) Active confirmed PO Iron Problem Polyneuropathy due to type 2 diabetes mellitus (945437431) Type 2 diabetes mellitus with diabetic polyneuropathy (E11.42) Active confirmed Neuropathic symptoms Controlled with Current dosage of Gabapentin, Will Re-Assess/ad dress if symptoms demand, DM Controlled with Current dosage of , Will Continue same dose and Monitor Problem Type 2 diabetes mellitus with peripheral angiopathy (524136879) Type 2 diabetes mellitus with diabetic peripheral angiopathy without gangrene (E11.51) Active confirmed Problem Type II diabetes mellitus without complication (445859322) Type 2 diabetes mellitus without complications (E11.9) Active confirmed Problem Mixed hyperlipidemia (495894831) Mixed hyperlipidemia (E78.2) Active confirmed Controlled with Current dosage of , Will Continue same dose and Monitor Problem Severe recurrent major depression without psychotic features (31728349) Major depressive disorder, recurrent severe without psychotic features (F33.2) Active confirmed Functioning okay with Lexapro, Will Continue to Monitor, Will Re-Assess/ad dress if symptoms demand Problem Essential hypertension (88836559) Essential (primary) hypertension (I10) Active confirmed Controlled with Current dosage of Amlodipine, Will Continue same dose and Monitor Problem Angina (921400136) 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) Active confirmed Will Re-Assess/ad dress if symptoms demand Problem Hypertrophic obstructive cardiomyopathy (82405506) Obstructive hypertrophic cardiomyopathy (I42.1) Active confirmed will refer to cardiology Problem Bilateral atherosclerosis of arteries of lower limbs (disorder) (0858585964249019 7) Unspecified atherosclerosis of ham[place] arteries of extremities, bilateral legs (I70.203) Active confirmed Problem Body mass index 30.00 to 34.99 (988036746366688) Body mass index (BMI) 33.0-33.9, adult (Z68.33) Active confirmed BMI Counselling Given,Diet Control emphasised and counselling given,Excerc ise Plan Recomended and discused,Joel ght Reduction Emphasised Plan Of Treatment Pending Test Test Name Order Date Mammogram 01/10/2020 EKG COMPLETE 03/31/2020 CHEST 2 VIEWS 01/10/2020 US ARTERIAL LOWER EXTREMITY BILATERAL US BREAST BILATERAL COMPLETE 02/22/2020 Occult Blood, Fecal, IA 01/10/2020 MicroAlbumin/Creatinine Ratio,Urine 12/27 Future Test Test Name Order Date Hemoglobin A1c 07/10/2020 Lipid Panel 07/10/2020 CMP14+eGFR 07/10/2020 Iron and TIBC 07/10/2020 Ferritin, Serum 07/10/2020 TSH Rfx on Abnormal to Free T4 CBC, Platelet, No Differential [facility] 0 07/10/2020 Insurance Providers Payer Name Payer Address Payer Phone Subscriber Number Group Number Insured Name Patient Relationship to Insured Coverage Start Date Coverage End Date [facility] [address] [address] [place], [place] [id number] Edilma Stone Self - patient is the insured 0 Medical (General) History Medical History History ICD Code Diabetes Mellitus Dxed @ 2000 anxiety/Depression, since atleast 1989, used to see psychaitry in [place] hyperlipdemia hypertension Vascular Studies - Arterial Doppler Lower Limbs 02/2020 - bilateral plaques, biphasic waves, ELIOT 0.8 right and 0.9 left, diminished Peak velodity along right IT SECURITY ANALYST suggest mild to moderate proximal aortoiliac narrowing, 50-69% narrowing left IT SECURITY ANALYST and left proximal popliteal, hypodense structure left popliteal suspicious for partially thrombosed fusiform aneurysm Sleep Study 08/2015 - obstru ctive sleep apnea hypokinemia disorder, severe degree, based on pre-CPAP respiratory disturbance index of 65.1/h, reduced to less than 5/h with treatment, desaturation that registered, sleep fragmentation, reduced did sleep and low sleep efficiency, CPAP was titrated up to 11 cm of H2O Surgical History Surgery Date(Month/Year) Cardiac Catheterisation with PTCA and St ent [1] Placement 1999 right knee replacement EGD and Colonoscopy - large gastric polyp with irregular surface and surface erosions, normal colon 03/2020 Hospitalization History Reason Date(Month/Year) for anxiety and depression 1989
== END 2024-12-06 11:24 | disposition home or self-care (01) ==
LOC: HO.HSMS 10:15
PROVIDERS: PCP Pediatrics; Visit Provider Physician Assistant Medical
DX: G47.33 Obstructive sleep apnea (adult) (pediatric) (principal); G47.19 Other hypersomnia; R68.89 Other general symptoms and signs; G47.00 Insomnia, unspecified; M54.2 Cervicalgia
CPT/HCPCS: 99214; G2211

== ENCOUNTER → 2024-12-06 10:15 | Outpatient (BNVA) | payer OTHER, SELFPAY | PROVIDERS: PCP Pediatrics; Visit Provider Physician Assistant Medical | DX: G47.33 Obstructive sleep apnea (adult) (pediatric) (principal); Z99.89 Dependence on other enabling machines and devices; G47.19 Other hypersomnia; R68.89 Other general symptoms and signs; G47.00 Insomnia, unspecified; M54.2 Cervicalgia | CPT/HCPCS: 99212 ==

== ENCOUNTER 2024-12-27 10:55 | Outpatient (REF) | payer OTHER, SELFPAY ==
--- OUTSIDE RECORDS SUMMARY | 2024-12-23 10:00 | XMS_ITS | Encounter Summary ---
Author Organization [facility] Address [address] [facility] [address] [place] [address] Care Team Providers Care Drum Sander Offbearer Name Role Phone Leslie Riojas MD Primary Care Provider [phone] Reason for Referral * Consultation (Routine) - Authorized Specialty Diagnoses / Procedures Referred By Contac t Referred To Contact Orthopaedic Surgery Diagnoses Arthritis of knee, left Leslie Riojas MD [address] [place] [address] Phone: tel: fax: [facility] [address] [place] [address] [place] [address] Phone: tel: fax: Referral ID Status Reason Start Date Expiration Date Visits Requested Visits Authorized [id number] Authorized Specialty Services Required 12/23/2024 12/23/2025 1 1 Encounter Details Date Type Department Care Team (Late st Contact Info) Description 12/23/2024 10:00 AM EDT Office Visit [facility] CH[facility] MED & PEDS [address] [place] [address] Leslie Riojas MD [address] [place], [place] [phone] Type 2 diabetes mellitus with other circulatory complication, without long-term current use of insulin (CMS/HCC) (Primary Dx); Arthritis of knee, left; HOCM (hypertrophic obstructive cardiomyopathy) (CMS/HCC) Social History Tobacco Use Types Packs/Day Years Used Date Smoking Tobacco: Former Cigarettes Q uit: 04/28/1994 Passive Smoke Exposure: Never Smokeless Tobacco: Never Alcohol Use Standard Drinks/Week Comments Defer 0 (1 standard drink = 0.6 oz pur e alcohol) Alcohol Answer Date Recorded Frequency of Alcohol Consumption Not on file 06/25/2023 Average Number of Drinks Not on file 024 Frequency of Binge Drinking Not on file 05/30 Score 0 06/25/2023 Depression Answer Date Recorded Patient Health Questionnaire-9 Score 9 07/15/2024 Patient Health Questionnaire-9 Score 9 07/15/2024 Last PHQ-9: Questionnaire Data Not on file 0 07/15/2024 Housing Stability Answer Date Recorded What is your housing situation today? I have sara linares 07/07/[address] you li ve. Do you have problems with any of the following? None of the above 07/07/2024 Food Insecurity Answer Date Recorded Within the past 12 months, y ou worried that your food would run out before you got money to buy more: Never True 07/07/2024 Within the past 12 months,th e food you bought just didn't last and you didn't have enough money to get more: Never True 03/2025 Transportation Answer Date Recorded In the past 12 months, has l ack of transportation kept you from medical appts, meetings, work or from getting things needed for daily living? No 07/07/2024 Utilities Answer Date Recorded In the past 12 months, has t he electric, gas, oil or water company threatened to shut off services in your home? No 07/07/2024 Depression Answer Date Recorded Patient Health Questionnaire-2 Score 2 07/15/2024 Internet Access Answer Date Recorded Internet Access Q1 Yes 07/07/2024 Internet Access Q2 Not on file 07/07/2024 Comments No Sex and Gender Information Value Date Recorded Sex Assigned at Female 05/02/2022 12:24 PM EST Legal Sex Female 12:19 PM EST Gender Identity Female 05/02/2022 12:24 PM EST Sexual Orientation Straight 05/02/2022 12 :24 PM EST documented as of this encounter Last Filed Vital Signs Vital Sign Reading Time Taken Comments Blood Pressure 140/70 12/23/2024 9:49 AM EDT Pulse 60 12/23/2024 9:49 AM EDT Temperature 36.6 C (97.9 F) 12/23/2024 9:49 AM EDT Respiratory Rate 16 12/23/2024 9:49 AM EDT Oxygen Saturation - - Inhaled Oxygen Concentration - - Weight 70.3 kg (155 lb) 12/23/2024 9:49 AM EDT Height - - Body Mass Index 31.31 07/15/2024 11:06 AM EDT documented in this encounter Progress Notes * Leslie Riojas MD - 12/23/2024 10:00 AM EDT Subjective Patient ID: Edilma Langford is a 74 y.o. female who presents for follow up. Edilma is a 74 y/o female patient of mine here for follow up with daughter.Complaining of left knee pain that is getting worse despite using a knee brace and ointments etc.. Has hx o f osteoarthritis and has received injections before.Patient would like a referral to orthopedics for this matter.Has opthalm visit in 02-19, cardiology follow up next month for CHF, HCOM and HTN. Dm is stable with A1c of 6.4 today. Complaining of gaining weight and unable to lose it . Review of Systems Constitutional: Positive for unexpected weight change. Negative for activity change, chills and fever. Eyes: Negative for visual disturbance. Respiratory: Negative for cough, shortness of breath and wheezing. Cardiovascular: Negative for chest pain, palpitations and leg swelling. Gastrointestinal: Negative for abdominal pain and blood in stool. Endocrine: Negative for polydipsia and polyuria. Genitourinary: Negative for decreased urine volume, difficulty urinating, dysuria and hematuria. Musculoskeletal: Negative for arthralgias and gait problem. Skin: Negative for color change and rash. Neurological: Negative for dizziness and headaches. Hematological: Negative for adenopathy. Psychiatric/Behavioral: Negative for dysphoric mood, hallucinations, sleep disturbance and suicidalideas. The patient is not nervous/anxious. Objective BP (!) 140/70 (BP Location: Left arm, Patient Position: Sitting, BP Cuff Size: Adult) Pulse 60 Temp 97.9 ??F (36.6 ??C) (Oral) Resp 16 Wt 155 lb (70.3 kg) BMI 31.31 kg/m?? Physical Exam Constitutional: General: She is not in acute distress. Appearance: Normal appearance. She is normal weight. She is not ill-appearing. HENT: Head: Normocephalic. Right Ear: Tympanic membrane and ear canal normal. Left Ear: Tympanic membrane and ear canal normal. Nose: Nose normal. Mouth/Throat: Mouth: Mucous membranes are moist. Pharynx: No oropharyngeal exudate or posterior oropharyngeal erythema. Comments: Has braces Eyes: Extraocular Movements: Extraocular movements intact. Conjunctiva/sclera: Conjunctivae normal. Pupils: Pupils are equal, round, and reactive to light. Cardiovascular: Rate and Rhythm: Normal rate and regular rhythm. Pulses: Normal pulses. Dorsalis pedis pulses are 2+ on the right side and 2+ on the left side. Posterior tibial pulses are 2+ on the right side and 2+ on the left side. Heart sounds: Normal heart sounds. No murmur heard. Pulmonary: Effort: Pulmonary effort is normal. No respiratory distress. Breath sounds: Normal breath sounds. Abdominal: General: Bowel sounds are normal. There is no distension. Palpations: Abdomen is soft. There is no mass. Tenderness: There is no abdominal tenderness. There is no guarding. Musculoskeletal: General: Normal range of motion. Cervical back: Normal range of motion. Right lower leg: No edema. Left lower leg: No edema. Right foot: Normal range of motion. No deformity, bunion, Charcot foot or prominent metatarsal heads. Left foot: Normal range of motion. No deformity, bunion, Charcot foot or prominent metatarsal heads. Feet: Right foot: Protective Sensation: 7 sites tested. 7 sites sensed. Skin integrity: Skin integrity normal. No ulcer, blister, skin breakdown, erythema, warmth, callus or dry skin. Toenail Condition: Right toenails are normal. Left foot: Protective Sensation: 7 sites tested. 7 sites sensed. Skin integrity: Skin integrity normal. No ulcer, blister, skin breakdown, erythema, warmth, callus or dry skin. Toenail Condition: Left toenails are normal. Skin: General: Skin is warm. Capillary Refill: Capillary refill takes less than 2 seconds. Findings: No rash. Neurological: General: No focal deficit present. Mental Status: She is alert and oriented to person, place, and time. Psychiatric: Mood and Affect: Mood normal. Behavior: Behavior normal. Thought Content: Thought content normal. Judgment: Judgment normal. Assessment/Plan Diagnoses and all orders for this visit: Type 2 diabetes mellitus with other circulatory complication, without long-term current use of insulin ([facility]) Comments: Well controlled with a1c of 6.4,labs UTD. Continue meds ,patient started 2.5 mg mounjaro, F/U given.Possible SE discussed. Orders: - POCT Glucose - POCT HGB A1C - Tirzepatide (Mounjaro) 2.5 MG/0.5ML solution auto-injector; Inject 2.5 mg under the skin 1 (one) time per week. Arthritis of knee, left Comments: Ortho referral for eval and knee injection done.Salon pas patches etc..Use knee brace. Orders: - Referral to Orthopaedic Surgery; Future HOCM (hypertrophic obstructive cardiomyopathy) ([facility]) Comments: BP stable,compliant with meds,no cardiac complaints. F/U with cardiology next month as scheduled. Other orders - ciclopirox (Penlac) 8 % solution; Apply topically at bedtime. documented in this encounter Plan of Treatment Upcoming Encounters Date Type Department Care Team (Late st Contact Info) Description 02/16/2025 10:00 AM EDT Office Visit [facility] OPTOMETRY [address] [place] [address] Earle, Keysha, OD [address] [place] [address] 03/21/2025 10:00 AM EST Office Visit [facility] CH[facility] ADULT DENTAL [address] [place] [address] Leila Otto Scheduled Referrals Name Type Priority Associated Diagnoses Order Schedule Referral to Orthopaedic Surgery Outpatient Referral Routine Arthritis of knee, left Expected: 12/23/2024 (Approximate), Expires: 12/23/2025 documented as of this encounter Goals Goal Patient Goal Type Associated Problems Recent Progress Patient-Stated? Author Blood Pressure < 140/90 Blood Pressure 140/70(2024 9:49 AM EDT) No Von Cope, PharmD Patient will adhere to medication regimen General No Von Cope PharmD Hemoglobin A1c < 7 Result Component 6.4( 10:04 AM EDT) No Von Cope PharmD documented as of this encounter Procedures Procedure Name Priority Date/Time Associated Diagnosis Comments POCT GLYCATED HEMOGLOBIN, TOTAL Routine 12/23/2024 10:04 AM EDT Type 2 diabetes mellitus with other circulatory complication, without long-term current use of insulin ([facility]) POCT GLUCOSE Routine 12/23/2024 10:03 AM EDT Type 2 diabetes mellitus with other circulatory complication, without long-term current use of insulin ([facility]) documented in this encounter Results * (ABNORMAL) POCT HGB A1C (12/23/2024 10:04 AM EDT) Hemoglobin A1C 6.4(A) 4.0 - 5.7 % QC Media Lot # [id number] Lot# Expiration Date 4,727 Blood 12/23/2024 10:0 4 AM EDT us Leslie Riojas MD POINT OF CARE TEST ENTER/EDIT ORDERABLES Final Result * POCT Glucose (12/23/2024 10:03 AM EDT) Glucose Blood, POC 136 60 - 200 mg/dL QC Media Lot # [id number] Lot# Expiration Date 122,025 Blood Capillary blood specimen / Unknown 12/23/2024 10:03 AM EDT us Leslie Riojas MD POINT OF CARE TEST ENTER/EDIT ORDERABLES Final Result documented in this encounter Visit Diagnoses Diagnosis Type 2 diabetes mellitus with other circulatory complication, without long-term current use of insulin ([facility])- Primary Arthritis of knee, left HOCM (hypertrophic obstructive cardiomyopathy) ([facility]) Hypertrophic obstructive cardiomyopathy documented in this encounter Additional Health Concerns Assessment Noted Time PHQ-9 Depression Total Score: 9 07/16/19 25 11:34 AM EDT documented as of this encounter Care Teams Drum Sander Offbearer Relationship Specialty Start Date End Date Leslie Riojas MD [address] [place] [id number] PCP - General Internal Medicine 05/09/22 documented as of this encounter
--- NOTE | ~2024-12-27 | MR_ITS ---
EXAMINATION: MR BRAIN WITHOUT CONTRAST CLINICAL INFORMATION: Excessive daytime sleepiness. Signs and symptoms, cognitive awareness COMPARISON: None available. TECHNIQUE: MRI of the brain was obtained using routine sequences without contrast. FINDINGS: No restricted diffusion. No acute intracranial hemorrhage, mass effect, midline shift, hydrocephalus or herniation. Garcia-white matter differentiation is normal. Bilateral, scattered, punctate, deep periventricular white matter, hyperintense T2 FLAIR signal involving centrum semiovale and edwards radiata both hemispheres more conspicuous in the frontal poles. Sellar/suprasellar region demonstrated CSF prominence suggesting diaphragmatic sella insufficiency. Craniocervical junction is intact with normal position of the cerebellar tonsils. Flow-void signal within the main cerebral vessels is normal. Prominence of the extra-axial CSF spaces cerebral sulci, likely age related. There is a 9 mm, teardrop, CSF signal in the right ethmoid air cells with questionable dehiscence at the right cribriform plate. Hyperintense T2 FLAIR signal in the greater wings of the sphenoid bone. No signal abnormality or volume loss in the hippocampi MR/MR head/brain wo con IMPRESSION: No acute stroke/nonhemorrhagic ischemia or acute intracranial hemorrhage. Nonspecific T2 FLAIR white matter signal. Questionable dehiscence , right cribriform plate. Recommend CT paranasal sinuses . Electronically signed by: Reagan Bailon MD 12/28/2024 07:19 AM EDT
--- OUTSIDE RECORDS SUMMARY | 2024-12-27 11:00 | XMS_ITS | Encounter Summary ---
Author Organization [employer] Address [address] [facility] 7[address] [place] [address] Care Team Providers Care Mapping Technician Name Role Phone Leslie Riojas MD Primary Care Provider [phone] Encounter Details Date Type Department Care Team (Late st Contact Info) Description 07/03/2023 Orders Only [facility] MED & PEDS [address] [place], [place] [phone] Ashley Slaughter, PharmD [address] [place] [address] Social History Tobacco Use Types Packs/Day Years [...] Description 02/16/2025 10:00 AM EDT Office Visit [facility] OPTOMETRY [address] [place] [address] EarleKeysha, OD [address] [place] [address] 03/21/2025 10:00 AM EST Office Visit [facility] ADULT DENTAL [address] [place] [address] Leila Otto documented as of this encounter Goals Goal Patient Goal Type Associated Problems Recent Progress Patient-Stated? Author Blood Pressure < 140/90 Blood Pressure 140/70(2024 9:49 AM EDT) No Dellogono, Von, PharmD Patient will adhere to medication regimen General No Dellogono, Von, PharmD Hemoglobin A1c < 7 Result Component 6.4( 10:04 AM EDT) No Dellogono, Von, PharmD documented as of this encounter Visit Diagnoses Not on filedocumented in this encounter Additional Health Concerns Assessment Noted Time PHQ-9 Depression Total Score: 6 06/25/19 10:18 AM EST documented as of this encounter Care Teams Mapping Technician Relationship Specialty Start Date End Date Leslie Riojas MD [address] [place] [address] PCP - General Internal Medicine 05/09/22 documented as of this encounter
--- OUTSIDE RECORDS SUMMARY | 2024-12-27 11:00 | XMS_ITS | Encounter Summary ---
Author Organization [employer] Address [address] [facility] [address] [place] [address] Care Team Providers Care Land Surveyor Name Role Phone Leslie Riojas MD Primary Care Provider [phone] Reason for Visit * Reason Comments Med Refill Encounter Details Date Type Department Care Team ([facility] Contact Info) Description 12/16/2024 Refill [facility] CH[facility] MED & PEDS [address] [place], [place] [phone] Leslie Riojas MD [address] [place] [address] Social History Tobacco Use Types Packs/Day Years [...] the past 12 months, has t he [employer], gas, oil or water company threatened to [...] 02/16/2025 10:00 AM EDT Office Visit [facility] OPTOMETRY [address] [place] [address] Earle, Keysha, OD [address] [place] [address] 03/21/2025 10:00 AM EST Office Visit [facility] CH[facility] ADULT DENTAL [address] [place] [address] Leila Otto documented as of this encounter Goals Goal Patient Goal Type Associated Problems Recent Progress Patient-Stated? Author Blood Pressure < 140/90 Blood Pressure 140/70(2024 9:49 AM EDT) No Von Cope, PharmD Patient will adhere to medication regimen General No Von Cope, PharmD Hemoglobin A1c < 7 Result Component 6.4( 10:04 AM EDT) No Von Cope, PharmD documented as of this encounter Visit Diagnoses Not on filedocumented in this encounter Additional Health Concerns Assessment Noted Time PHQ-9 Depression Total Score: 9 07/16/19 25 11:34 AM EDT documented as of this encounter Care Teams Land Surveyor Relationship Specialty Start Date End Date Leslie Riojsa MD [address] [place] [address] PCP - General Internal Medicine 05/09/22 documented as of this encounter
--- OUTSIDE RECORDS SUMMARY | 2024-12-27 11:00 | XMS_ITS | Encounter Summary ---
Author Organization [employer] Address [address] [facility] [address] [place] [address] Care Team Providers Care Domestic Violence Counselor Name Role Phone Leslie Riojas MD Primary Care Provider [phone] Encounter Details Date Type Department Care Team (Latest Contact Info) Description 12/23/2024 Travel Social History Tobacco Use Types Packs/Day Years [...] Description 02/16/2025 10:00 AM EDT Office Visit [facility] OPTOMETRY [address] [place] [address] Earle, Keysha, OD [address] [place] [address] 03/21/2025 10:00 AM EST Office Visit [facility] CHC ADULT DENTAL [address] [place] [address] Leila Otto documented as of this encounter [...] documented as of this encounter Care Teams Domestic Violence Counselor Relationship Specialty Start Date End Date Leslie Riojas MD [address] [place] [address] PCP - General Internal Medicine 05/09/22 documented as of this encounter
--- OUTSIDE RECORDS SUMMARY | 2024-12-27 11:00 | XMS_ITS | Clinical Summary ---
Author Organization [facility] Address [address] [place] [phone] Phone Care Team Providers Care Health Careers Instructor Name Role Phone Leslie Riojas MD Primary Care Provider [phone] Allergies No known active allergies Medications carvedilol [...] 01/01/2017 POTASSIUM LEVEL 09/14/2023 09/13/2022 COVID-19 VACCINE ( season) 2023 10/09/2021, 01/19/2021, 07/18/2020, Additional history exists INFLUENZA VACCINE (#1) 2024 05/09/2022 Adult Td,Tdap Booster 10/08/2032 10/08/2022 ZOSTER VACCINES [...] this topic Medical Devices Implanted Type Area Money Manager Device Identifier Shelf Expiration Date Model / Serial / Lot Stent Absolute Pro 10mm 40mm 80cm .035in Otw Vascular Nickel Titanium Self-Expanding External Iliac Artery Tri Axial Radiopaque Marker Sterile Disp - [id number] Implanted:Qty: 1 on 11/18/2022 by Kal Maradiaga DO at [facility] Stent Arterial [employer] [id number] 05/28/2023 [id number] / / [id number] Description:Rt Common iliac artery stent Insurance MEDICARE REPLACEMENT MEDICARE REPLACEMENT MEDICARE REPLACEMENT MEDICARE REPLACEMENT MEDICARE REPLACEMENT MEDICARE REPLACEMENT Advance Directives For more information, please contact: [phone] (9AM - 5PM [place], Friday-Friday) * Full Code (Latest Code Status on File) Date Activated Date Inactivated Comments 11/18/2022 6:55 AM Question Answer Comments Code Status Confirmed With: Patient Code Status Communicated To: Other (specify belo w) Code Discussion Comments: Per MD Maradiaga Care Teams Health Careers Instructor Relationship Specialty Start Date End Date Leslie Riojas MD [address] [place] [address] PCP - General Internal Medicine 10/28/22 Additional Source Comments The information contained in this document represents components of the legal health record. It is not the complete legal health record.[facility]
--- OUTSIDE RECORDS SUMMARY | 2024-12-27 11:00 | XMS_ITS | Encounter Summary ---
Author Organization [facility] Address [address] [place] [address] Care Team Providers Care Guest Experience Manager Name Role Phone Leslie Riojas MD Primary Care Provider Reason for Visit * Reason Onset Date Comments Nurse Triage 11/26/2022 Encounter Details Date Type Department Care Team ([facility] st Contact Info) Description 11/26/[address] [facility] MED[facility] [address] [place] [address] Leslie Riojas MD [address] [place] [phone] Nurse Triage Social History Tobacco Use Types Packs/Day Years Used Date Smoking Tobacco: Former Cigarettes Q uit: 04/28/1994 Passive Smoke Exposure: Never Smokeless Tobacco: Never Comments No Sex and Gender Information Value Date Recorded Sex Assigned at Female 05/02/2022 12:24 PM EST Legal Sex Female 12:19 PM EST Gender Identity Female 05/02/2022 12:24 PM EST Sexual Orientation Straight 05/02/2022 12 :24 PM EST COVID-19 Exposure Response Date Recorded In the last 10 days, have yo u been in contact with someone who was confirmed or suspected to have Coronavirus/COVID-19? No / Unsure 10/28/2022 12:41 PM EDT documented as of this encounter Miscellaneous Notes * Telephone Encounter - Etta Dalal RN - 11/26/2022 10:29 AM EDT Triage call with [employer] Technician ID [id number] Pt was seen in [facility] 11/20/22 for vein procedure on right leg. Pt is calling for an apt for follow up.Pt reports no signs of infection at site and just some bruising and slight swelling remains. No bleeding or drainage evident. Pt is applying ice to the sight daily for comfort. Pt is taking tylenol for pain, and reports pain comes and goes. Pt is moving , walking daily and tolerating this well. Aptwith 12/02 @ 315pm. Pt agrees with disposition. Home care reviewed. Protocol Used: Leg Pain (Adult) Protocol-Based Disposition: See in Office or Video Visit within 2 Weeks Video visit not offered Positive Triage Question: * Mild pain (e.g., does not interfere with normal activities) and present > 7 days * All higher-acuity triage questions were negative Care Advice Discussed: * Reassurance and Education - Leg Pain * Pain Medicines * Pain Medicines - Extra Notes and Warnings * Reasons To Call Back - Moderate pain (e.g., limping) lasts more than 3 days - Mild pain lasts more than 7 days - Signs of infection occur (e.g., spreading redness, warmth, fever) - You become worse * Use a Cold Pack for Pain * Telephone Encounter - Carolann Amaya - 11/26/2022 9:27 AM EDT Tc from [facility] Daughter of pt stated pt had a Vein Procedure on 11/18 in [facility]. [facility]ora states pt is having pain due to catheter. PCP Shine documented in this encounter Plan of Treatment Upcoming Encounters Date Type Department Care Team (Late st Contact Info) Description 02/16/2025 10:00 AM EDT Office Visit [facility] OPT[facility] [address] [place] [address] Keysha Og, OD [address] [place] [address] 03/21/2025 10:00 AM EST Office Visit [facility] ADULT DENTAL [address] [place] [address] Leila Otto documented as of this encounter Goals Goal Patient Goal Type Associated Problems Recent Progress Patient-Stated? Author Blood Pressure < 140/90 Blood Pressure 140/70(2024 9:49 AM EDT) No Von Cope PharmD Patient will adhere to medication regimen General No Von Cope PharmD Hemoglobin A1c < 7 Result Component 6.4( 10:04 AM EDT) No Von Cope PharmD documented as of this encounter Visit Diagnoses Not on filedocumented in this encounter Additional Health Concerns Assessment Noted Time PHQ-9 Depression Total Score: 4 05/09/19 10:37 AM EST documented as of this encounter Care Teams Guest Experience Manager Relationship Specialty Start Date End Date Leslie Riojas MD [address] [place] [id number] PCP - General Internal Medicine 05/09/22 documented as of this encounter
--- OUTSIDE RECORDS SUMMARY | 2024-12-27 11:00 | XMS_ITS | Encounter Summary ---
Author Organization [employer] Address [address] [facility] [address] [place] [address] Care Team Providers Care Electronics Manufacturer Name Role Phone Leslie Riojas MD Primary Care Provider [phone] Reason for Visit * Reason Comments Med Refill Encounter Details Date Type Department Care Team ([facility] Contact Info) Description 04/25/2024 Refill [facility] MED & PEDS [address], [place] [phone] Leslie Riojas MD [address] [place] [address] Social History Tobacco Use Types Packs/Day Years [...] 02/16/2025 10:00 AM EDT Office Visit [facility] OPTOMETRY [address] [place] [address] Earle, Keysha, OD [address] [place] [address] 03/21/2025 10:00 AM EST Office Visit [facility] [address] [place] [address] Leila Otto documented as of this encounter Goals Goal Patient Goal Type Associated Problems Recent Progress Patient-Stated? Author Blood Pressure < 140/90 Blood Pressure 140/70(2024 9:49 AM EDT) No Von Cope, PharmD Patient will adhere to medication regimen General No DellogVon green, PharmD Hemoglobin A1c < 7 Result Component 6.4( 10:04 AM EDT) No Von Cope, PharmD documented as of this encounter Visit Diagnoses Not on filedocumented in this encounter Additional Health Concerns Assessment Noted Time PHQ-9 Depression Total Score: 6 06/25/19 10:18 AM EST documented as of this encounter Care Teams Electronics Manufacturer Relationship Specialty Start Date End Date Leslie Riojas MD [address] [place] [address] PCP - General Internal Medicine 05/09/22 documented as of this encounter
--- OUTSIDE RECORDS SUMMARY | 2024-12-27 11:00 | XMS_ITS | Encounter Summary ---
Author Organization [employer] Address [address] [facility] [address] [place] [address] Care Team Providers Care Merchant Seaman Name Role Phone Leslie Riojas MD Primary Care Provider [phone] Encounter Details Date Type Department Care Team ([facility] Contact Info) Description 09/11/2022 Telephone [facility] MED & PEDS [address] [place], [place] [phone] Leslie Riojas MD [address], [place] [phone] Social History Tobacco Use Types Packs/Day Years Used Date Smoking Tobacco: Former Cigarettes Q uit: 04/28/1994 Passive Smoke Exposure: Never Smokeless Tobacco: Never Comments Unknown Sex and Gender Information Value [...] suspected to have Coronavirus/COVID-19? No / Unsure 09/10/2022 9:34 AM EDT documented as of this encounter Plan of Treatment Upcoming Encounters Date Type Department Care Team (Late Contact Info) Description 02/16/2025 10:00 AM EDT Office Visit [facility] OPTOMETRY [address] [place], [place] [phone] Keysha Og, OD [address] [place], [place] [phone] 03/21/2025 10:00 AM EST Office Visit [facility] ADULT DENTAL [address] [place] [address] Leila Otto documented as of this encounter Goals Goal Patient Goal Type Associated Problems Recent Progress Patient-Stated? Author Blood Pressure < 140/90 Blood Pressure 140/70(2024 9:49 AM EDT) No DellogVon green, PharmD Patient will adhere to medication regimen General No Dellognorma, Von, PharmD Hemoglobin A1c < 7 Result Component 6.4( 10:04 AM EDT) No Dellognorma, Von, PharmD documented as of this encounter Visit Diagnoses Not on filedocumented in this encounter Additional Health Concerns Assessment Noted Time PHQ-9 Depression Total Score: 4 05/09/19 10:37 AM EST documented as of this encounter Care Teams Merchant Seaman Relationship Specialty Start Date End Date Leslie Riojas MD [address] [place] [address] PCP - General Internal Medicine 05/09/22 documented as of this encounter
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
--- OUTSIDE RECORDS SUMMARY | 2024-12-27 11:00 | XMS_ITS | Encounter Summary ---
Author Organization [employer] Address [address] [facility] 7 [place] [address] Care Team Providers Care Supervisor Pole Yard Name Role Phone Leslie Riojas MD Primary Care Provider [phone] Reason for Visit * Reason Comments Med Refill Encounter Details Date Type Department Care Team ([facility] Contact Info) Description 04/07/2024 Refill [facility] PED[facility] [address] [place], [place] [phone] Leslie Riojas MD [address] [place] [address] Social History Tobacco Use Types Packs/Day Years [...] Description 02/16/2025 10:00 AM EDT Office Visit [facility] OPT[facility] [address] [place] [address] Earle, Keysha, OD [address] [place] [address] 03/21/2025 10:00 AM EST Office Visit [facility] ADULT DENTAL [address] [place] [address] Leila Otto documented as of this encounter [...] documented as of this encounter Care Teams Supervisor Pole Yard Relationship Specialty Start Date End Date Leslie Riojas MD [address] [place] [phone] PCP - General Internal Medicine 05/09/22 documented as of this encounter
--- OUTSIDE RECORDS SUMMARY | 2024-12-27 11:00 | XMS_ITS | Encounter Summary ---
Author Organization [employer] Address [address] [facility] 7 [place] [address] Care Team Providers Care International Manager Name Role Phone Leslie Riojas MD Primary Care Provider [phone] Encounter Details Date Type Department Care Team ([facility] st Contact Info) Description 12/05/2022 Orders Only [facility]ED[facility] [address] [place], [place] [phone] Leslie Riojas MD [address] [place] [address] Social History Tobacco Use Types Packs/Day Years Used Date Smoking Tobacco: Former Cigarettes Q uit: 04/28/1994 Passive Smoke Exposure: Never Smokeless Tobacco: Never Depression Answer Date Recorded Patient Health Questionnaire-9 Score 14 12/05/2022 Depression Answer Date Recorded Patient Health Questionnaire-2 Score 2 12/05/2022 Comments No Sex and Gender Information Value Date Recorded Sex Assigned at Female 05/02/2022 12:24 PM EST Legal Sex Female 12:19 PM EST Gender Identity Female 05/02/2022 12:24 PM EST Sexual Orientation Straight 05/02/2022 12 :24 PM EST documented as of this encounter Functional Status * Over the past 2 weeks, how often have you been bothered by any of the following problems? Question Answer Date of Assessment Author Patient Health Questionnaire-2 Score 2 11/26 10:45 AM Kayla Lara * If you checked off any problems on this questionnaire so far, Question Answer Date of Assessment Author How difficult have these problems made it for you to do your work, take care of things at home, or get along with other people? Very difficult 12/05/2022 10:45 AM EDT Kayla Obando * Over the last 2 weeks, how often have you been bothered by any of the following problems? Question Answer Date of Assessment Author Feeling nervous, anxious, or on edge 3 11/26 10:45 AM EDT Kayla Obando Not being able to stop or co ntrol worrying 0 12/05/2022 10:45 AM EDT Kayla Obando Worrying too much about diff erent things 0 12/05/2022 10:45 AM EDT Kayla Obando Trouble relaxing 1 12/05/2022 10:45 AM EDT Kayla Obando Being so restless that it is hard to sit still 0 12/05/2022 10:45 AM EDT Kayla Obando Becoming easily annoyed or irritable 2 11/26 10:45 AM EDT Kayla Obando Feeling afraid as if somethi ng awful might happen 1 12/05/2022 10:45 AM EDKayla Marcano NEGRA-7 Total Score 7 12/05/2022 10:45 AM Kayla Lara * Over the past 2 weeks, how often have you been bothered by any of the following problems? Question Answer Date of Assessment Author Little interest or pleasure in doing things Not at all 12/05/2022 10:45 AM Supriya Lara Feeling down, depressed, or hopeless More than half the days 12/05/2022 10:45 AM EDKayla Marcano Trouble falling or staying asleep, or sleeping too much Nearly every day 12/05/2022 10:45 AM Kayla Lara Feeling tired or having little energy More than half the days 12/05/2022 10:45 AM Kayla Lara Poor appetite or overeating Nearly every day 12/05/2022 10:45 AM Kayla Lara Feeling bad about yourself - or that you are a failure or have let yourself or your family down Several days 12/05/2022 10:45 AM EDT Kayla Obando Trouble concentrating on things, such as reading the newspaper or watching television More than half the days 12/05/2022 10:45 AM EDT Kayla Obando Moving or speaking so slowly that other people could have noticed? Or the opposite - being so fidgety or restless that you have been moving around a lot more than usual. Several days 12/05/2022 10:45 AM EDT Kayla Obando Thoughts that you would be better off or hurting yourself in some way Not at all 12/05/2022 10:45 AM EDT Kayla Obando Patient Health Questionnaire-9 Score 14 12/05/2022 10:45 AM EDT Harrison Obando documented as of this encounter Plan of Treatment Upcoming Encounters Date Type Department Care Team (Late st Contact Info) Description 02/16/2025 10:00 AM EDT Office Visit [facility] OPT[facility] [address] [place] [address] EarleKeysha, OD [address] [place] [address] 03/21/2025 10:00 AM EST Office Visit [facility] [address] [place] [address] Leila Otto documented as of this encounter [...] Assessment Noted Time PHQ-9 Depression Total Score: 14 023 10:45 AM EDT documented as of this encounter Care Teams International Manager Relationship Specialty Start Date End Date Lselie Riojas MD [address] [place] [address] PCP - General Internal Medicine 05/09/22 documented as of this encounter
--- OUTSIDE RECORDS SUMMARY | 2024-12-27 11:00 | XMS_ITS | Encounter Summary ---
Author Organization [employer] Address [address] [facility] [address] [place] [address] Care Team Providers Care Well Control Instructor Name Role Phone Leslie Riojas MD Primary Care Provider [phone] Encounter Details Date Type Department Care Team ([facility] st Contact Info) Description 07/16/2024 Orders Only [facility] MED [facility] PEDS [address] [place] [address] Provider, MD Val Social History Tobacco Use Types Packs/Day Years [...] is your housing situation today? I have saracraig linares 07/07/[address] you [...] Description 02/16/2025 10:00 AM EDT Office Visit [facility] OPT[facility] [address] [place] [address] Earle, Keysha, OD [address] [place] [address] 03/21/2025 10:00 AM EST Office Visit [facility] ADULT DENT[facility] [address] [place] [address] Leila Otto documented as of this encounter Goals Goal Patient Goal Type Associated Problems Recent Progress Patient-Stated? Author Blood Pressure < 140/90 Blood Pressure 140/70(2024 9:49 AM EDT) No Von Cope, PharmD Patient will adhere to medication regimen General No Dellogono, Von, PharmD Hemoglobin A1c < 7 Result Component 6.4( 10:04 AM EDT) No DellogVon green, PharmD documented as of this encounter Procedures Procedure Name Priority Date/Time Associated Diagnosis Comments COLONOSCOPY Routine 04/04/2020 8:44 AM EST documented in this encounter Results * Hm Colonoscopy (04/04/2020 8:44 AM EST) Historical Provider MD HEALTH MAINTENANCE Final Result documented in this encounter Visit Diagnoses Not on filedocumented in this encounter Additional Health Concerns Assessment Noted Time PHQ-9 Depression Total Score: 9 07/16/19 25 11:34 AM EDT documented as of this encounter Care Teams Well Control Instructor Relationship Specialty Start Date End Date Leslie Riojas MD [address] [place] [address] PCP - General Internal Medicine 05/09/22 documented as of this encounter
--- OUTSIDE RECORDS SUMMARY | 2024-12-27 11:00 | XMS_ITS | Encounter Summary ---
Author Organization [employer] Address [address] [place] [address] Care Team Providers Care Eyeglass Frame Truer Name Role Phone Leslie Riojas MD Primary Care Provider [phone] Reason for Visit * Reason Onset Date Comments chart prep 12/22/2024 Encounter Details Date Type Department Care Team ([facility] Contact Info) Description 12/22/2024 Telephone [facility] MED [facility] PEDS [address] [place] [address] Leslie Riojas MD [address] [place] [address] chart prep Social History Tobacco Use Types Packs/Day Years [...] the past 12 months, has t he [employer], gas, oil or water company threatened to [...] PM EST documented as of this encounter Miscellaneous Notes * Telephone Encounter - Alyson Perez RN - 12/22/2024 4:23 PM EDT Chart Prep Labs: not applicable Images: not done Referrals: not applicable Vaccines due: no updates Screenings: mammogram, foot exam Overdue care gaps: A1c, Glucose, and Disability screen documented in this encounter Plan of Treatment Upcoming Encounters Date Type Department Care Team (Late st Contact Info) Description 02/16/2025 10:00 AM EDT Office Visit [facility] OPTOMETRY [address] [place] [address] Earle, Keysha, OD [address] [place] [address] 03/21/2025 10:00 AM EST Office Visit [facility] ADULT DENTAL [address] [place] [address] Leila Otto documented as of this encounter [...] documented as of this encounter Care Teams Eyeglass Frame Truer Relationship Specialty Start Date End Date Leslie Riojas MD [address] [place] [id number] PCP - General Internal Medicine 05/09/22 documented as of this encounter
--- OUTSIDE RECORDS SUMMARY | 2024-12-27 11:00 | XMS_ITS | Encounter Summary ---
Author Organization [facility] Address [address] [place] [address] [place] [phone] Phone Care Team Providers Care Credit Resolution Representative Name Role Phone Leslie Riojas MD Primary Care Provider [phone] Encounter Details Date Type Department Care Team ([facility] st Contact Info) Description 11/18/2022 Procedure [facility] [address] [place] [address] Social History Tobacco Use Types Packs/Day Years Used Date Smoking Tobacco: Former Cigarettes Q uit: 1992 Smokeless Tobacco: Never Alcohol Use Standard Drinks/Week Comments Not Currently [...] on file Sexual Orientation Not on file documented as of this encounter Plan of Treatment Not on file documented as of this encounter Visit Diagnoses Not on filedocumented in this encounter Care Teams Credit Resolution Representative Relationship Specialty Start Date End Date Leslie Riojas MD [address] [place] [address] PCP - General Internal Medicine 10/28/22 documented as of this encounter Additional Source Comments The information contained in this document represents components of the legal health record. It is not the complete legal health record.[facility]
--- OUTSIDE RECORDS SUMMARY | 2024-12-27 11:00 | XMS_ITS | Encounter Summary ---
Author Organization [employer] Address [address] [facility] 7 [place] [address] Care Team Providers Care Coffee Brewer Name Role Phone Leslie Riojas MD Primary Care Provider [phone] Reason for Visit * Reason Comments Med Refill Encounter Details Date Type Department Care Team ([facility] Contact Info) Description 04/07/2024 Refill [facility] MED & PEDS [address] [place], [place] [phone] Leslie Riojas MD [address] [place] [address] Social History Tobacco Use Types Packs/Day Years [...] Description 02/16/2025 10:00 AM EDT Office Visit [facility] OPTOMETRY [address] [place] [address] Earle, Keysha, OD [address] [place] [address] 03/21/2025 10:00 AM EST Office Visit [facility] AD[facility] D[facility]AL [address] [place] [address] Leila Otto documented as of this encounter [...] documented as of this encounter Care Teams Coffee Brewer Relationship Specialty Start Date End Date Leslie Riojas MD [address] [place] [id number] PCP - General Internal Medicine 05/09/22 documented as of this encounter
--- OUTSIDE RECORDS SUMMARY | 2024-12-27 11:00 | XMS_ITS | Patient Health Record ---
Author Organization Kolton Stafford MD PA Address [address] [place], [place] [id number] Care Team Providers Care Mental Health Tech Name Role Phone Kolton Stafford Primary Care Provider [phone] Reason For Referral No Information Medications Medication [...] Status W/U Status Risk Notes Problem Anemia (906171425) Anemia, unspecified (D64.9) Active confirmed PO Iron Problem Polyneuropathy due to type 2 diabetes mellitus (247041767) Type 2 diabetes mellitus with diabetic polyneuropathy (E11.42) Active confirmed Neuropathic symptoms Controlled with Current dosage of Gabapentin, Will Re-Assess/ad dress if symptoms demand, DM Controlled with Current dosage of , Will Continue same dose and Monitor Problem Type 2 diabetes mellitus with peripheral angiopathy (035464659) Type 2 diabetes mellitus with diabetic peripheral angiopathy without gangrene (E11.51) Active confirmed Problem Type II diabetes mellitus without complication (361561618) Type 2 diabetes mellitus without complications (E11.9) Active confirmed Problem Mixed hyperlipidemia (257189208) Mixed hyperlipidemia (E78.2) Active confirmed Controlled with Current dosage of , Will Continue same dose and Monitor Problem Severe recurrent major depression without psychotic features (04461408) Major depressive disorder, recurrent severe without psychotic features (F33.2) Active confirmed Functioning okay with Lexapro, Will Continue to Monitor, Will Re-Assess/ad dress if symptoms demand Problem Essential hypertension (99574737) Essential (primary) hypertension (I10) Active confirmed Controlled with Current dosage of Amlodipine, Will Continue same dose and Monitor Problem Angina (851917010) 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) Active confirmed Will Re-Assess/ad dress if symptoms demand Problem Hypertrophic obstructive cardiomyopathy (89947861) Obstructive hypertrophic cardiomyopathy (I42.1) Active confirmed will refer to cardiology Problem Bilateral atherosclerosis of arteries of lower limbs (disorder) (0310205290565861 7) Unspecified atherosclerosis of [place] arteries of extremities, bilateral legs (I70.203) Active confirmed Problem Body mass index 30.00 to 34.99 (363473396927543) Body mass index (BMI) 33.0-33.9, adult (Z68.33) [...] Insured Coverage Start Date Coverage End Date [facility] [address] [address] [place], [place] [id number] [phone] [id number] Edilma Stone Self - patient is the insured 0 Medical (General) History Medical History History ICD Code Diabetes Mellitus Dxed @ 2000 anxiety/Depression, since atleast 1989, used to see psychaitry in [place] hyperlipdemia hypertension Vascular Studies - Arterial Doppler Lower Limbs 02/2020 - bilateral plaques, biphasic waves, ELIOT 0.8 right and 0.9 left, diminished Peak velodity along right UNIFIED COMMUNICATIONS ENGINEER suggest mild to moderate proximal aortoiliac narrowing, 50-69% narrowing left UNIFIED COMMUNICATIONS ENGINEER and left proximal popliteal, hypodense structure left [...]
--- OUTSIDE RECORDS SUMMARY | 2024-12-27 11:00 | XMS_ITS | Clinical Summary ---
Author Organization [facility] Address [address] [place] [address] Care Team Providers Care Associate Dentist Name Role Phone Unavailable Primary Care Provider [...]
== END 2024-12-27 10:56 | disposition home or self-care (01) ==
LOC: HO.MRI 10:55
PROVIDERS: PCP Pediatrics; Visit Provider Physician Assistant Medical
DX: I25.10 Atherosclerotic heart disease of native coronary artery without angina pectoris (principal); G47.33 Obstructive sleep apnea (adult) (pediatric); R41.89 Other symptoms and signs involving cognitive functions and awareness; R46.89 Other symptoms and signs involving appearance and behavior
CPT/HCPCS: 70551

== ENCOUNTER → 2024-12-27 11:10 | Outpatient (BNV) | payer OTHER, SELFPAY | PROVIDERS: PCP Pediatrics; Visit Provider Radiology Diagnostic Radiology | DX: G47.10 Hypersomnia, unspecified (principal) | CPT/HCPCS: 70551 ==

== ENCOUNTER 2025-02-16 15:42 | Outpatient (REF) | payer OTHER, SELFPAY ==
--- NOTE | ~2025-02-16 | CT_ITS ---
EXAMINATION: CT HEAD WITHOUT CONTRAST CLINICAL INFORMATION: Cribriform plate dehiscence questioned on recent MRI brain 12/27/2024. COMPARISON: MRI brain 12/27/2024. TECHNIQUE: Contiguous axial imaging was performed from the skull base to vertex without intravenous administration of contrast. This CT examination was performed using dose optimization techniques as appropriate, variously including the following: *Automated exposure control *Adjustment of mA and/or kV according to patient size (this includes techniques or standardized protocols for targeted exams where dose is matched to indication/reason for exam; i.e. extremities or head) *Use of iterative reconstruction technique FINDINGS: There is no evidence of intracranial hemorrhage or extra-axial fluid collection. There is no mass effect, or edema. No CT evidence of acute territorial infarct. Ventricles, sulci, and cisterns are normal in size and configuration for patient age. No hydrocephalus. No midline shift. Negative hyperdense MCA sign. Negative insular ribbon sign. No significant white matter attenuation abnormalities. Normal pituitary. Mild atheromatous calcification of the bilateral carotid siphons. Globes and orbital contents image normally. No extracranial soft tissue abnormalities. The cribriform plate is intact. There is no evidence of dehiscence. There is a solitary mucous retention cyst in a right posterior ethmoid air cell. Otherwise the paranasal sinuses are normally pneumatized. Mastoids and tympanic cavities are normally aerated. No suspicious bony abnormalities. There are no acute fractures evident. CT/CT head/brain wo IV con IMPRESSION: 1. No acute intracranial abnormality. 2. There is no evidence of cribriform plate dehiscence. The abnormality on recent MRI relates to a mucous retention cyst in the right posterior ethmoid air cells. Electronically signed by: Kevin Montero MD 02/17/2025 01:18 PM EDT
--- OUTSIDE RECORDS SUMMARY | 2025-02-16 10:00 | XMS_ITS | Encounter Summary ---
Author Organization [employer] Address [address] [facility] 7[address] [place] [address] Care Team Providers Care Orthotist Or Prosthetist Name Role Phone Leslie Riojas MD Primary Care Provider [phone] Reason for Visit * Reason Comments Diabetic Eye Exam Encounter Details Date Type Department Care Team (Late st Contact Info) Description 02/16/2025 10:00 AM EDT Office Visit [facility] OPTOMETRY [address] [place] [address] Earle, Keysha, OD [address] [place] [address] Diabetes type 2, no ocular involvement (HCC) (Primary Dx); Combined forms of age-related cataract of both eyes; Dry eyes; Presbyopia Social History Tobacco Use Types Packs/Day Years [...] your housing situation today? I have sara vijay 07/07/[address] you li [...] Care Team (Late st Contact Info) Description 03/21/2025 10:00 AM EST Office Visit [facility] ADULT DENTAL [address] [place] [address] Leila Otto 03/29/2025 9:00 AM EST Office Visit [facility] MED & PEDS [address] [place] [address] Leslie Riojas MD [address] [place] [address] documented as of this encounter Goals Goal Patient Goal Type Associated Problems Recent Progress Patient-Stated? Author Blood Pressure < 140/90 Blood Pressure 140/70(2024 9:49 AM EDT) No Von Cope, PharmD Patient will adhere to medication regimen General No Von Cope, PharmD Hemoglobin A1c < 7 Result Component 6.4(08/28/202 5 10:04 AM EDT) No Von Cope, Manny documented as of this encounter Visit Diagnoses Diagnosis Diabetes type 2, no ocular involvement (HCC)- Primary Combined forms of age-related cataract of both eyes Dry eyes Unspecified tear film insufficiency Presbyopia documented in this encounter Additional Health Concerns Assessment Noted Time PHQ-9 Depression Total Score: 9 07/16/19 25 11:34 AM EDT documented as of this encounter Care Teams Orthotist Or Prosthetist Relationship Specialty Start Date End Date Leslie Riojas MD [address] [place] [id number] PCP - General Internal Medicine 05/09/22 documented as of this encounter
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
--- OUTSIDE RECORDS SUMMARY | 2025-02-16 21:50 | XMS_ITS | Clinical Summary ---
Author Organization [facility] Address [address] [facility] [address] [place] [address] Phone Care Team Providers Care Model Builder Display Name Role Phone Leslie Riojas MD Primary Care Provider [phone] Allergies No known active allergies Medications carvedilol [...] COLONOSCOPY 01/01/1997 RSV VACCINE (1 - Risk 50-74 years 1-dose series) 01/01/2002 OSTEOPOROSIS SCREENING INITIAL (ONE-TIME) 01/01/2017 POTASSIUM LEVEL 09/14/2023 09/13/2022 INFLUENZA VACCINE (#1) 2024 05/09/2022 COVID-19 VACCINE ( season) 2024 10/09/2021, 01/19/2021, 07/18/2020, Additional history exists Adult [...] this topic Medical Devices Implanted Type Area Telescope Repairer Device Identifier Shelf Expiration Date Model / Serial / Lot Stent Absolute Pro 10mm 40mm 80cm .035in Otw Vascular Nickel Titanium Self-Expanding External Iliac Artery Tri Axial Radiopaque Marker Sterile Disp - [id number] Implanted:Qty: 1 on 11/18/2022 by Kal Maradiaga DO at [facility] Stent Arterial [employer] [id number] 05/28/2023 [id number] / / [id number] Description:Rt Common iliac artery stent Insurance MEDICARE REPLACEMENT MEDICARE REPLACEMENT MEDICARE REPLACEMENT MEDICARE REPLACEMENT MEDICARE REPLACEMENT MEDICARE REPLACEMENT Advance Directives For more information, please contact: [phone] (9AM - 5PM [place], Friday-Friday) * Full Code (Latest Code Status on File) Date Activated Date Inactivated Comments 11/18/2022 6:55 AM Question Answer Comments Code Status Confirmed With: Patient Code Status Communicated To: Other (specify belo w) Code Discussion Comments: Per MD Maradiaga Care Teams Model Builder Display Relationship Specialty Start Date End Date Leslie Riojas MD [address] [place] [address] PCP - General Internal Medicine 10/28/22 Additional Source Comments The information contained in this document represents components of the legal health record. It is not the complete legal health record.[facility]
--- OUTSIDE RECORDS SUMMARY | 2025-02-16 21:50 | XMS_ITS | Encounter Summary ---
Author Organization [employer] Address [address] [facility] [address] [place] [address] Care Team Providers Care Diesel Engine I Pipe Fitter Name Role Phone Leslie Riojas MD Primary Care Provider [phone] Encounter Details Date Type Department Care Team ([facility] Contact Info) Description 09/11/2022 Telephone [facility] [address] [place], [place] [phone] Leslie Riojas MD [address] [place] [address] Social History Tobacco Use Types Packs/Day Years [...] Department Care Team (Late Contact Info) Description 03/21/2025 10:00 AM EST Office Visit [facility] ADULT DENTAL [address] [place] [address] Leila Otto 03/29/2025 9:00 AM EST Office Visit [facility] [address] [place] [address] Leslie Riojas MD [address] [place] [address] documented as of this encounter Goals Goal Patient Goal Type Associated Problems Recent Progress Patient-Stated? Author Blood Pressure < 140/90 Blood Pressure 140/70(2024 9:49 AM EDT) No DelVon smith, PharmD Patient will adhere to medication regimen General No DellogVan greenis, PharmD Hemoglobin A1c < 7 Result Component 6.4( 10:04 AM EDT) No DelVon smith, PharmD documented as of this encounter Visit Diagnoses Not on filedocumented in this encounter Additional Health Concerns Assessment Noted Time PHQ-9 Depression Total Score: 4 05/09/19 23 10:37 AM EST documented as of this encounter Care Teams Diesel Engine I Pipe Fitter Relationship Specialty Start Date End Date Leslie Riojas MD [address] [place] [address] PCP - General Internal Medicine 05/09/22 documented as of this encounter
--- OUTSIDE RECORDS SUMMARY | 2025-02-16 21:50 | XMS_ITS | Encounter Summary ---
Author Organization [employer] Address [address] [facility] [address] [place] [address] Care Team Providers Care Trash Collector Truck Driver Name Role Phone Leslie Riojas MD Primary Care Provider [phone] Encounter Details Date Type Department Care Team (Latest Contact Info) Description 02/16/2025 Travel Social History Tobacco Use Types Packs/Day [...] Description 03/21/2025 10:00 AM EST Office [facility] ADULT D[facility] [address] [place] [address] Leila Otto 03/29/2025 9:00 AM EST Office [facility] [address] [place] [address] Leslie Riojas MD [address] [place] [address] documented as of this encounter Goals Goal Patient Goal Type Associated Problems Recent Progress Patient-Stated? Author Blood Pressure < 140/90 Blood Pressure 140/70(2024 9:49 AM EDT) No Van Copeis, PharmD Patient will adhere to medication regimen General No Dellogono, Von, PharmD Hemoglobin A1c < 7 Result Component 6.4( 10:04 AM EDT) No Dellogono Von, PharmD documented as of this encounter Visit Diagnoses Not on filedocumented in this encounter Additional Health Concerns Assessment Noted Time PHQ-9 Depression Total Score: 9 07/16/19 25 11:34 AM EDT documented as of this encounter Care Teams Trash Collector Truck Driver Relationship Specialty Start Date End Date Leslie Riojas MD [address] [place] [address] PCP - General Internal Medicine 05/09/22 documented as of this encounter
--- OUTSIDE RECORDS SUMMARY | 2025-02-16 21:50 | XMS_ITS | Encounter Summary ---
Author Organization [employer] [facility] Address [address] [facility] 7 [place] [address] Care Team Providers Care Group Practice Pediatrician Name Role Phone Leslie Riojas MD Primary Care Provider [phone] Reason for Visit * Reason Onset Date Comments Nurse Triage 11/26/2022 Encounter Details Date Type Department Care Team ([facility] st Contact Info) Description 11/26/2022 Telephone [facility] [address] [place] [address] Leslie Riojas MD [address] [place] [address] Nurse Triage Social History Tobacco Use Types [...] 11/26/2022 10:29 AM EDT Triage call with [place] Wildlife Technician ID [id number] Pt was seen in [facility] 11/20/22 for vein procedure on [...] had a Vein Procedure on 11/18 in [facility]. Flora states pt is having pain due to catheter. PCP Shine documented in this encounter Plan of Treatment Upcoming Encounters Date Type Department Care Team (Late st Contact Info) Description 03/21/2025 10:00 AM EST Office Visit [facility] ADULT DENTAL [address] [place] [address] Leila Otto 03/29/2025 9:00 AM EST Office Visit [facility] MED & PEDS [address] [place] [address] Leslie Riojas MD [address] [place] [address] documented as of this encounter Goals Goal [...] documented as of this encounter Care Teams Group Practice Pediatrician Relationship Specialty Start Date End Date Leslie Riojas MD [address] [place] [address] PCP - General Internal Medicine 05/09/22 documented as of this encounter
--- OUTSIDE RECORDS SUMMARY | 2025-02-16 21:50 | XMS_ITS | Data Portability ---
Author Organization [employer] [facility] Address [address] [place] [address] Care Team Providers Care Restaurant Team Member Name Role Phone Unavailable OTHER HIM CCA OTHER Assessment Encounter Date Assessment Date Assessment LastModified by Organization Details LastModified Time 03/05/2023 03/05/2023 I provided real -time medical direction via phone for this encounter, and was available for additional phone based assistance as needed. I have reviewed and agree with the Assessment and Plan as documented by the Operator And Truck Driver. Patient given the opportunity to ask questions. As per above, patient with cough and low-grade temperature. The cough is nonproductive and she has positive sick contacts. COVID influenza negative. She denies any chest pain, shortness of breath, abdominal pain. She also denies headache and chills and rigors. She is nontoxic on exam per lap machine operator on the scene. She would like to have medication for cough. She was told to take Robitussin [id number] which she has at home. Will hold off on Tessalon Perles as she declines a payment for these. We discussed the diagnostic uncertainty of home visits and the risk associated with this. In this case, the patient and I felt this to be an acceptable and reasonable amount of risk given the benefit of avoiding an ED visit. We discussed the need to seek care urgently/emergentl y in the setting of any new or worsening serious symptoms, particularly fever chills lightheadedness altered mental status [email or web address] Not available 03/05/2023 22:04:44 Plan of Treatment Reminders Order Date Submit Date Provider Last Modified By Organization Details Last Modified Time Details Appointments None record ed. Lab None record ed. Referral None record ed. Procedures None record ed. Surgeries None record ed. Imaging None record ed. Medication Orders None record ed. Patient TargetsNo targets recorded. Patient InstructionsNo instructions recorded. Reason for Referral None Reported. Medical Equipment None Reported. Allergies No known drug allergies Medications Name Sig Start Date Stop Date Status Note LastModified by Organization Details LastModified Time medbox status USE DIRECTED active Not Available Not Available No t Available losartan 50 mg tablet TAKE ONE TABLET EVERY MORNING active Not Available Not Available No t Available cilostazol 100 mg tablet TAKE ONE TABLET TWICE DAILY active Not Available Not Available Not Available carvedilol 25 mg tablet TAKE ONE TABLET TWICE DAILY IN THE MORNING AND EVENING active Not Available Not Available No t Available carvedilol 12.5 mg tablet TAKE ONE TABLET IN THE MORNING AND EVENING WITH BREAKFAST AND SUPPER active Not Available Not Available N ot Available metoprolol succinate ER 200 mg tablet,exten ded release 24 hr TAKE ONE TABLET EVERY EVENING active Not Available Not Available No t Available metoprolol succinate ER 100 mg tablet,exten ded release 24 hr TAKE ONE TABLET EVERY EVENING active Not Available Not Available No t Available clopidogrel 75 mg tablet TAKE ONE TABLET EVERY MORNING active Not Available Not Available No t Available aspirin 81 mg tablet,delay ed release TAKE ONE TABLET BY MOUTH EVERY MORNING active Not Available Not Available No t Available losartan 100 mg-hydrochlo rothiazide 25 mg tablet TAKE ONE TABLET EVERY MORNING active Not Available Not Available No t Available citalopram 20 mg tablet TAKE ONE TABLET EVERY MORNING active Not Available Not Available No t Available gabapentin 800 mg tablet TAKE ONE TABLET BY MOUTH TWICE DAILY TWICE DAILY AT NOON AND BEDTIME active Not Available Not Available No t Available OneTouch Ultra Test strips TEST BLOOD SUGAR TWICE DAILY active Not Available Not Available No t Available pantoprazole 40 mg tablet,delay ed release TAKE ONE TABLET BY MOUTH EVERY MORNING active Not Available Not Available No t Available doxazosin 4 mg tablet TAKE ONE TABLET every night at bedtime active Not Available Not Available N ot Available folic acid 1 mg tablet TOME CECE TABLETA DIARIAMENTE active Not Available Not Available Not Available hydralazine 50 mg tablet TAKE ONE TABLET THREE TIMES DAILY IN THE MORNING, EVENING AND BEDTIME WITH FOOD active Not Available Not Available No t Available azelastine 137 mcg (0.1 %) nasal spray INHALE TWO SPRAYS IN EACH NOSTRIL TWICE DAILY active Not Available Not Available Not Available oxycodone 5 mg tablet TAKE 1 TABLET BY MOUTH EVERY 6 HOURS NEEDED FOR SEVERE PAIN active Not Available Not Available Not Available rosuvastatin 40 mg tablet TAKE ONE TABLET EVERY EVENING active Not Available Not Available No t Available blood pressure test kit-large cuff Check blood pressure on arm as directed active Not Available Not Available No t Available Tradjenta 5 mg tablet TAKE ONE TABLET BY MOUTH EVERY MORNING active Not Available Not Available No t Available Synjardy XR 12.5 mg-1,000 mg tablet, extended release TAKE TWO TABLETS BY MOUTH EVERY MORNING active Not Available Not Available No t Available Xarelto 2.5 mg tablet TAKE ONE TABLET IN THE MORNING AND EVENING active Not Available Not Available Not Available OneTouch Ultra2 Meter TEST BLOOD SUGAR TWICE DAILY active Not Available Not Available No t Available OneTouch Delica Plus Lancet 33 gauge TEST BLOOD SUGAR TWICE DAILY active Not Available Not Available No t Available Trijardy XR 12.5 mg-2.5 mg-1,000 mg tablet, extended release TAKE TWO TABLETS EVERY MORNING WITH BREAKFAST active Not Available Not Available No t Available BinaxNOW COVID-19 Ag Self Test kit USE ROSA INDICADO EN EL EMPAQUE active Not Available Not Available N ot Available Vitals Date Recorded Body temperature Body weight Body height Heart rate Oxygen saturation Oxygen saturation in Arterial blood by Pulse oximetry Respiratory rate Systolic And Diastolic Provider Name and Address Organization Details Last Updated DateTime 5 98 [degF] 85040.8 g 152.4 cm 60 /min 98 % 98 % 11 /min 168/84 mm[Hg] Not Available [employer] 5 15:24:23 Date Recorded Heart rate Oxygen saturation Oxygen saturation in Arterial blood by Pulse oximetry Body temperature Respiratory rate Systolic And Diastolic Provider Name and Address Organization Details Last Updated DateTime 3 100 /min 98 % 98 % 99.4 [degF] 18 /min 212/100 mm[Hg] Not Available [facility] 3 20:29:09 Social History None recorded. Functional Status None recorded. Mental Status None recorded. Family History Nothing Reported. Medical History No medical history recorded. Gynecological HistoryNo gynecological history recorded. Obstetrics History GPAL:G 0 P 0 0 0 0 Past Encounters Encounter ID Performer Location Encounter Start Date Encounter Closed Date Diagnosis/Indication Diagnosis SNOMED-CT Code Diagnosis ICD10 Code Diagnosis IMO Codes Diagnosis Note [id number] Nathaly Anton MD [facility] [address] [place] [id number] 03/05/2023 20:28:58 03/06/2023 11:00:15 Cough [id number] R05.9 [id number] ALISON DUNCAN MD Main - [address] [phone] 07/22/2024 15:24:17 07/22/2024 17:46:52 Ganglion cyst of right volar wrist [id number] M67.431 Evaluation in the field was performed by my lap machine operator colleague, as noted above, I provided real-time direction and supervisio n for this visit. The evaluation revealed 74-year-ol d female with a past medical history significan t for hypertensi on, congestive heart failure, coronary artery disease ( on Plavix ) , and type 2 diabetes mellitus presenting with complaints of right wrist pain over the past few months, which has been progressiv bird worsening. Pain developed gradually without any reported trauma or sudden event.Snow ent reports associated swelling.D enies numbness, tingling, or other areas of pain or concern. Vital Signs:Mild ly elevated blood pressure, otherwise within normal limits.Phy sical Examinatio n: Alert, oriented, in no acute distress.L ungs: Clear to auscultati on bilaterall y.Cardiova scular: No abnormalit ies noted.Musc uloskeleta l: Right wrist with full range of motion, but movement is painful.Pa lpation: Two small, movable lumps noted on the palmar side of the right wrist, near the radial artery (thumb side). The cysts are tender to palpation, and pain is elicited with pressure and wrist movement, as confirmed by the lap machine operator' s examinatio n.Allergie s: Reviewed. Impression :Likely volar ganglion cyst of right wrist , given the location, mobility, and symptoms. Plan:-A prescripti on for a wrist brace was sent to her pharmacy, which may help reduce irritation by limiting movement, thereby decreasing pain and potentiall y shrinking the cyst. An LIAM wrap was applied by the lap machine operator until the family can obtain the brace from the pharmacy.- Patient was advised to use Tylenol for pain management , up to 1 gram every 8 hours as needed.-If the cyst continues to grow or enlarge, she will need to follow up with an orthopedic or general surgeon for possible aspiration .-Red flags were discussed with the patient and her family, including persistent or worsening pain, numbness or tingling in the hand or fingers, significan t changes in the size of the cyst, difficulty moving the wrist, redness of the skin overlying the cyst, fever, or any other concerning symptoms. Primary care, considerul trasound for confirmati on if ongoing pain Dispositio n:We discussed the diagnostic uncertaint y of home visits and the risk associated with this. In this case, the patient and I felt this to be an acceptable and reasonable amount of risk given the benefit of avoiding an ED visit. We discussed the need to seek care urgently/e mergently in the setting of any new or worsening serious symptoms, particular lypersiste nt or worsening pain, numbness or tingling in the hand or fingers, significan t changes in the size of the cyst, difficulty moving the wrist, redness of the skin overlying the cyst, fever, or any other concerning symptoms. Health Concerns Section Related Observation LastModified by Organization Detai ls LastModified Time None Recorded Concern Status LastModified by Organization Details LastModified Time None Recorded Advance Directives Directive None Recorded Payers Insurance Date Sequence Insurance Name Policy Number Policy Wells Covered Member ID Wells Member ID Guarantor Name 08/20/[address] [facility] - DOS ON OR AFTER 2022 - DUAL ELIGIBLE - [employer] AND ONE CARE (MEDICARE REPLACEMENT/ADV ANTAGE - HMO) Edilma Langford [id number] Edilma Langford Notes Date Note Type Note Provider Name and Address Organization Details Recorded Time 03/05/2023 text/html [facility] Nursing Assessment: Reason For Request: Cough Chief Complaints: Cough, Shortness of Breath/Dyspnea PMH: Hypertension Allergies: No Known Comments: Members daughter calling in to place a referral, member identified via /name. Member with a 3 day history of a hacky, nonproductive cough, sob only occurs after a coughing spell, member feels like her chest may be congested. Denies fever/chills, no n/v/d. Has been using OTC cold medication and cough drops. Member would like to be evaluated. ................... ................... ................... ................... ................... ................... ................... ........ Operator And Truck Driver Note From Brandon Rodriguez: Patient reports 3 days of non-productive coughing and feeling tired. Patient denies chest pain, shortness of breath, or changes in vision. Patient states she has not taken any home medication for her symptoms but has been compliant with her daily prescriptions. POC Covid swab negative. [facility] contacted: authorized 1g PO Tylenol and a prescription for cough medicine at patients pharmacy of choice. Red flags discussed with patient and family, family is comfortable with plan in place. Patient encouraged to seek further assistance should she become further symptomatic. ................... ................... ................... ................... ................... ................... ................... ........ Disposition: Fulfilled Nathaly Anton MD [address] [place] [address],[address], [place], [address], [facility] 03/05/2023 22:05:11 07/22/2024 text/html ROS as noted in the HPI HPI: Patient with two raised bumps on right wrist that are painful. Started with one bump. No accident or injury. ................... ................... ................... ................... ................... ................... ................... ........ [facility] Nurse Triage Notes (María Bowman): Chief Complaints: Extremity Pain PMH: Hypertension, Cigarette Smoker, Congestive Heart Failure, Coronary Artery Disease, Diabetes Mellitus Type 2 PMH Reviewed at 07/22/2024:43 Allergies Reviewed at 07/22/2024:43 Comments: CRC RN did not require any additional information to process this visit. ................... ................... ................... ................... ................... ................... ................... ........ Operator And Truck Driver Note From Brandon Rodriguez: Patient alert and oriented complains of right wrist pain times months. Patient reports pain came on gradually, no trauma or sudden event noted. Patient reports swelling. Patient denies numbness or tingling. Patient denies other pain or complaints. Patient pink warm dry secondary exam unremarkable. Right wrist, swelling as noted in pictures. [facility] advises patient it s likely a cyst to contact PCP for further treatment. [facility] orders, liam wrap, applied as ordered without complication good CSM in right hand after application. Patient advised to keep rest straight and use wrist brace prescribed by [facility] at local pharmacy. Red flag patient education discussed. Tylenol dosing discussed. Patient demonstrates understanding of care and plan. ................... ................... ................... ................... ................... ................... ................... ........ [facility] Consulted: Alison Duncan ................... ................... ................... ................... ................... ................... ................... ........ Disposition: Fulfilled ALISON DUNCAN MD [address] [place] [address],[address], [place], [address], [employer] 07/22/2024 16:02:21 OBGyn Episode No OBEpisode recorded.
--- OUTSIDE RECORDS SUMMARY | 2025-02-16 21:50 | XMS_ITS | Encounter Summary ---
Author Organization [employer] Address [address] [facility] 7t [place] [address] Care Team Providers Care Rn Recruitment Name Role Phone Leslie Riojas MD Primary Care Provider [phone] Encounter Details Date Type Department Care Team ([facility] st Contact Info) Description 07/16/2024 Orders Only [facility] MED & PEDS [address] [place] [address] Provider, MD Val Social History Tobacco Use [...] 03/21/2025 10:00 AM EST [facility] [address] [place] [address] Leila Otto 03/29/2025 9:00 AM EST [facility] [address] [place] [address] Leslie Riojas MD [address] [place] [address] documented as of this encounter Goals Goal Patient Goal Type Associated Problems Recent Progress Patient-Stated? Author Blood Pressure < 140/90 Blood Pressure 140/70(2024 9:49 AM EDT) No Von Cope, PharmD Patient will adhere to medication regimen General No SaturninologVon green, PharmD Hemoglobin A1c < 7 Result Component 6.4( 10:04 AM EDT) No Von Cope, PharmD documented as of this encounter Procedures Procedure Name Priority Date/Time Associated Diagnosis Comments HM COLONOSCOPY Routine 04/04/2020 8:44 AM EST documented in this encounter Results * Hm Colonoscopy (04/04/2020 8:44 AM EST) us Historical Provider HEALTH MAINTENANCE Final Result documented in this encounter Visit Diagnoses Not on filedocumented in this encounter Additional Health Concerns Assessment Noted Time PHQ-9 Depression Total Score: 9 07/16/19 25 11:34 AM EDT documented as of this encounter Care Teams Rn Recruitment Relationship Specialty Start Date End Date Leslie Riojas MD [address] [place] [address] PCP - General Internal Medicine 05/09/22 documented as of this encounter
--- OUTSIDE RECORDS SUMMARY | 2025-02-16 21:50 | XMS_ITS | Encounter Summary ---
Author Organization [employer] Address [address] [facility] 7 [place] [address] Care Team Providers Care Leather Goods I Assembler Name Role Phone Leslie Riojas MD Primary Care Provider [phone] Reason for Visit * Reason Comments Med Refill Encounter Details Date Type Department Care Team ([facility] Contact Info) Description 12/16/2024 Refill [facility] MED & PEDS [address] [place], [place] [phone] Leslie Riojas MD [address] [place] [address] Social History Tobacco Use Types Packs/Day Years [...] the past 12 months, has t he [employer], gas, oil or water company threatened to [...] 03/21/2025 10:00 AM EST Office Visit [facility] ADULT DENTAL [address] [place] [address] Leila Otto 03/29/2025 9:00 AM EST Office Visit [facility] MED & PEDS [address] [place] [address] Leslie Riojas MD [address] [place] [address] documented as of this encounter Goals Goal [...] documented as of this encounter Care Teams Leather Goods I Assembler Relationship Specialty Start Date End Date Leslie Riojas MD [address] [place] [address] PCP - General Internal Medicine 05/09/22 documented as of this encounter
--- OUTSIDE RECORDS SUMMARY | 2025-02-16 21:50 | XMS_ITS | Clinical Summary ---
Author Organization [facility] Address [address] [place] [address] Care Team Providers Care Lens Cleaner Name Role Phone Unavailable Primary Care Provider [...] Last Done Comments Breast Cancer Screening 1950 Colorectal Cancer Screening: Colonoscopy 1950 DTaP,Tdap,and Td Vaccines (1 - Tdap) 01/01/1971 Pneumococcal Vaccine: 50+ Ye ars (1 of 1 - PCV) 01/01/2002 Zoster Vaccines (1 of 2) 01/01/2002 Falls Risk Assessment 05/22/2023 Hepatitis C Screening 05/22/2023 Osteoporosis Screening (Bone Density Screening) 05/22/2023 Social Influencers of Health Screening 05/22/2023 Depression Screening 04/28/2024 COVID-19 Vaccine (1 - 2023-2 5 season) 2024 Influenza Vaccine (#1) 2024 RSV Immunization Adult [...]
--- OUTSIDE RECORDS SUMMARY | 2025-02-16 21:50 | XMS_ITS | Encounter Summary ---
Author Organization [employer] Address [address] [facility] 7 [place] [address] Care Team Providers Care Telex Operator Name Role Phone Leslie Riojas MD Primary Care Provider [phone] Encounter Details Date Type Department Care Team ([facility] st Contact Info) Description 12/05/2022 Orders Only [facility] CHC MED & PEDS [address] [place], [place] [phone] Leslie Riojas MD [address] [place] [address] Social History Tobacco Use Types Packs/Day Years [...] EST Office Visit [facility] ADULT DENTAL [address] [place] [address] Leila Otto 03/29/2025 9:00 AM EST Office Visit [facility] MED & PEDS [address] [place] [address] Leslie Riojas MD [address] [place] [address] documented as of this encounter Goals Goal Patient Goal Type Associated Problems Recent Progress Patient-Stated? Author Blood Pressure < 140/90 Blood Pressure 140/70(2024 9:49 AM EDT) No DellogVon green, PharmD Patient will adhere to medication regimen General No Dellogono, Von, PharmD Hemoglobin A1c < 7 Result Component 6.4( 10:04 AM EDT) No DellogonoVanis, PharmD documented as of this encounter Visit Diagnoses Not on filedocumented in this encounter Additional Health Concerns Assessment Noted Time PHQ-9 Depression Total Score: 14 023 10:45 AM EDT documented as of this encounter Care Teams Telex Operator Relationship Specialty Start Date End Date Leslie Riojas MD [address] [place] [address] PCP - General Internal Medicine 05/09/22 documented as of this encounter
--- OUTSIDE RECORDS SUMMARY | 2025-02-16 21:50 | XMS_ITS | Encounter Summary ---
Author Organization [employer] Address [address] [facility] 7[address] [place] [address] Care Team Providers Care Medicine And Health Service Manager Name Role Phone Leslie Riojas MD Primary Care Provider [phone] Encounter Details Date Type Department Care Team (Late st Contact Info) Description 07/03/2023 Orders Only [facility] CH[facility] MED & PEDS [address] [place], [place] [phone] Ashley Slaughter, PharmD [address] [place] [address] Social History Tobacco Use Types Packs/Day Years [...] Description 03/21/2025 10:00 AM EST Office Visit [facility] ADULT DENTAL [address] [place] [address] Leila Otto 03/29/2025 9:00 AM EST Office Visit [facility] MED & PEDS [address] [place] [address] Leslie Riojas MD [address] [place] [address] documented as of this encounter Goals Goal Patient Goal Type Associated Problems Recent Progress Patient-Stated? Author Blood Pressure < 140/90 Blood Pressure 140/70(2024 9:49 AM EDT) No DellogonoVanis, PharmD Patient will adhere to medication regimen General No Dellogono, Von, PharmD Hemoglobin A1c < 7 Result Component 6.4( 10:04 AM EDT) No Dellogono Von, PharmD documented as of this encounter Visit Diagnoses Not on filedocumented in this encounter Additional Health Concerns Assessment Noted Time PHQ-9 Depression Total Score: 6 06/25/19 24 10:18 AM EST documented as of this encounter Care Teams Medicine And Health Service Manager Relationship Specialty Start Date End Date Leslie Riojas MD [address] [place] [address] PCP - General Internal Medicine 05/09/22 documented as of this encounter
--- OUTSIDE RECORDS SUMMARY | 2025-02-16 21:51 | XMS_ITS | Encounter Summary ---
Author Organization [employer] Address 75 [facility] 7 [place] [address] Care Team Providers Care Public Health Professor Name Role Phone Leslie Riojas MD Primary Care Provider [phone] Reason for Visit * Reason Comments Med Refill Encounter Details Date Type Department Care Team ([facility] Contact Info) Description 02/01/[address] [facility] CHC MED & PEDS [address] [place], [place] [phone] Leslie Riojas MD 505 [place] [address] Gastroesophageal reflux disease without esophagitis Social History Tobacco Use Types Packs/Day Years [...] the past 12 months, has t he [place], gas, oil or water [employer] threatened to shut off services in your [...] Description 03/21/2025 10:00 AM EST Office Visit [facility] ADULT DENTAL [address] [place] [address] Leila Otto 03/29/2025 9:00 AM EST Office Visit [facility] MED & PEDS [address] [place] [address] Leslie Riojas MD 505 [place] [address] documented as of this encounter Goals Goal Patient Goal Type Associated Problems Recent Progress Patient-Stated? Author Blood Pressure < 140/90 Blood Pressure 140/70(2024 9:49 AM EDT) No Von Cope, PharmD Patient will adhere to medication regimen General No Von Cope, PharmD Hemoglobin A1c < 7 Result Component 6.4( 10:04 AM EDT) No Von Cope PharmD documented as of this encounter Visit Diagnoses Diagnosis Gastroesophageal reflux disease without esophagitis Esophageal reflux documented in this encounter Additional Health Concerns Assessment Noted Time PHQ-9 Depression Total Score: 9 07/16/19 25 11:34 AM EDT documented as of this encounter Care Teams Public Health Professor Relationship Specialty Start Date End Date Leslie Riojas MD [address] [place] [address] PCP - General Internal Medicine 05/09/22 documented as of this encounter
--- OUTSIDE RECORDS SUMMARY | 2025-02-16 21:51 | XMS_ITS | Encounter Summary ---
Author Organization [facility] Address [address] [place] [address] [place] [address] Phone Care Team Providers Care Field Support Engineer Name Role Phone Leslie Riojas MD Primary Care Provider [phone] Encounter Details Date Type Department Care Team ([facility] st Contact Info) Description 11/18/2022 Procedure Pass [facility] [address] [place] [address] Social History Tobacco Use Types Packs/Day Years [...] on filedocumented in this encounter Care Teams Field Support Engineer Relationship Specialty Start Date End Date Leslie Riojas MD [address] [place] [address] PCP - General Internal Medicine 10/28/22 documented as of this encounter Additional Source Comments The information contained in this document represents components of the legal health record. It is not the complete legal health record.[facility]
--- OUTSIDE RECORDS SUMMARY | 2025-02-16 21:51 | XMS_ITS | Encounter Summary ---
Author Organization [employer] Address 75 [facility] 7 [place] [address] Care Team Providers Care Core Feeder Name Role Phone Leslie Riojas MD Primary Care Provider [phone] Reason for Visit * Reason Comments Med Refill Encounter Details Date Type Department Care Team ([facility] Contact Info) Description 04/07/2024 Refill [facility] CHC MED & PEDS [address] [place], [place] [phone] Leslie Riojas MD [address] [place] [address] Social History Tobacco Use Types Packs/Day Years [...] 03/21/2025 10:00 AM EST Office Visit [facility] ADULT DENTAL 505 [place] [address] Leila Otto 03/29/2025 9:00 AM EST Office Visit [facility] MED & PEDS [address] [place] [address] Leslie Riojas MD [address] [place] [address] documented as of this encounter Goals Goal [...] documented as of this encounter Care Teams Core Feeder Relationship Specialty Start Date End Date Leslie Riojas MD [address] [place] [address] PCP - General Internal Medicine 05/09/22 documented as of this encounter
--- OUTSIDE RECORDS SUMMARY | 2025-02-16 21:51 | XMS_ITS | Encounter Summary ---
Author Organization [employer] Address 75 [facility] 7 [place] [address] Care Team Providers Care Pelletizer Operator Name Role Phone Leslie Riojsa MD Primary Care Provider [phone] Reason for Visit * Reason Comments Med Refill Encounter Details Date Type Department Care Team ([facility] Contact Info) Description 04/07/2024 Refill [facility] CHC MED & PEDS [address] [place], [place] [phone] Leslie Riojas MD 505 [place] [address] Social History Tobacco Use Types Packs/Day Years [...] 10:00 AM EST Office Visit [facility] ADULT DENTAL [address] [place] [address] Leila Otto 03/29/2025 9:00 AM EST Office Visit [facility] MED & PEDS [address] [place] [address] Leslie Riojas MD [address] [place] [address] documented as of this encounter Goals Goal [...] documented as of this encounter Care Teams Pelletizer Operator Relationship Specialty Start Date End Date Leslie Riojas MD [address] [place] [address] PCP - General Internal Medicine 05/09/22 documented as of this encounter
--- OUTSIDE RECORDS SUMMARY | 2025-02-16 21:51 | XMS_ITS | Encounter Summary ---
Author Organization [employer] Address 75 [facility] 7 [place] [address] Care Team Providers Care Label Designer Name Role Phone Leslie Riojas MD Primary Care Provider [phone] Reason for Visit * Reason Comments Med Refill Encounter Details Date Type Department Care Team ([facility] Contact Info) Description 04/25/2024 Refill [facility] CHC MED & PEDS [address] [place], [place] [phone] Leslie Riojas MD 505 [place] [address] Social History Tobacco Use Types Packs/Day Years [...] Description 03/21/2025 10:00 AM EST Office Visit [facility] ADULT DENTAL 505 [place] [address] Leila Otto 03/29/2025 9:00 AM EST Office Visit [facility] MED & PEDS [address] [place] [address] Leslie Riojas MD 505 [place] [address] documented as of this encounter Goals Goal [...] documented as of this encounter Care Teams Label Designer Relationship Specialty Start Date End Date Leslie Riojas MD [address] [place] [address] PCP - General Internal Medicine 05/09/22 documented as of this encounter
--- OUTSIDE RECORDS SUMMARY | 2025-02-16 21:51 | XMS_ITS | Patient Health Record ---
Author Organization Kolton Stafford MD PA Address [address] [facility] [address] [place], [place] [address] Care Team Providers Care Ice Cream Chef Name Role Phone Kolton Stafford Primary Care [...] Status W/U Status Risk Notes Problem Anemia (438385925) Anemia, unspecified (D64.9) Active confirmed PO Iron Problem Polyneuropathy due to type 2 diabetes mellitus (690472654) Type 2 diabetes mellitus with diabetic polyneuropathy (E11.42) Active confirmed Neuropathic symptoms Controlled with Current dosage of Gabapentin, Will Re-Assess/ad dress if symptoms demand, DM Controlled with Current dosage of , Will Continue same dose and Monitor Problem Type 2 diabetes mellitus with peripheral angiopathy (134894602) Type 2 diabetes mellitus with diabetic peripheral angiopathy without gangrene (E11.51) Active confirmed Problem Type II diabetes mellitus without complication (920730398) Type 2 diabetes mellitus without complications (E11.9) Active confirmed Problem Mixed hyperlipidemia (928207079) Mixed hyperlipidemia (E78.2) Active confirmed Controlled with Current dosage of , Will Continue same dose and Monitor Problem Severe recurrent major depression without psychotic features (55436038) Major depressive disorder, recurrent severe without psychotic features (F33.2) Active confirmed Functioning okay with Lexapro, Will Continue to Monitor, Will Re-Assess/ad dress if symptoms demand Problem Essential hypertension (85063189) Essential (primary) hypertension (I10) Active confirmed Controlled with Current dosage of Amlodipine, Will Continue same dose and Monitor Problem Angina (247841768) 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) Active confirmed Will Re-Assess/ad dress if symptoms demand Problem Hypertrophic obstructive cardiomyopathy (42485093) Obstructive hypertrophic cardiomyopathy (I42.1) Active confirmed will refer to cardiology Problem Bilateral atherosclerosis of arteries of lower limbs (disorder) (8863130715297181 7) Unspecified atherosclerosis of [place] arteries of extremities, bilateral legs (I70.203) Active confirmed Problem Body mass index 30.00 to 34.99 (792679106703458) Body mass index (BMI) 33.0-33.9, adult (Z68.33) [...] Insured Coverage Start Date Coverage End Date [facility] [address] [address] [place], [place] [id number] Edilma Stone Self - patient is the insured 0 Medical (General) History Medical History History ICD Code Diabetes Mellitus Dxed @ 2000 anxiety/Depression, since atleast 1989, used to see psychaitry in [place] hyperlipdemia hypertension Vascular Studies - Arterial Doppler Lower Limbs 02/2020 - bilateral plaques, biphasic waves, ELIOT 0.8 right and 0.9 left, diminished Peak velodity along right ORAL SURGEON suggest mild to moderate proximal aortoiliac narrowing, 50-69% narrowing left ORAL SURGEON and left proximal popliteal, hypodense structure left [...]
== END 2025-02-16 15:43 | disposition home or self-care (01) ==
LOC: HO.CT 15:42
PROVIDERS: PCP Pediatrics; Visit Provider Physician Assistant Medical
DX: R93.0 Abnormal findings on diagnostic imaging of skull and head, not elsewhere classified (principal)
CPT/HCPCS: 70450

== ENCOUNTER → 2025-02-16 15:43 | Outpatient (BNV) | payer OTHER, SELFPAY | PROVIDERS: PCP Pediatrics; Visit Provider Radiology Diagnostic Radiology | DX: R93.0 Abnormal findings on diagnostic imaging of skull and head, not elsewhere classified (principal) | CPT/HCPCS: 70450 ==

== ENCOUNTER 2025-02-28 08:18 | Outpatient (REF) | payer OTHER, SELFPAY ==
--- OUTSIDE RECORDS SUMMARY | 2025-02-28 08:32 | XMS_ITS | Encounter Summary ---
Author Organization [employer] Address 75 [facility] 7t [place] [address] Care Team Providers Care Mill Oiler Name Role Phone Leslie Riojas MD Primary Care Provider [phone] Encounter Details Date Type Department Care Team ([facility] st Contact Info) Description 07/16/2024 Orders Only [facility] CHC MED & PEDS [address] [place] [address] Provider, MD Val Social History Tobacco Use [...] Upcoming Encounters Date Type Department Care Team ([facility] st Contact Info) Description 03/22/2025 10:15 AM EST Office Visit [facility] ADULT DENTAL 505 [place] [address] Leila Otto 03/29/2025 9:00 AM EST Office Visit [facility] MED & PEDS [address] [place] [address] Leslie Riojas MD 505 [place] [address] documented as of this encounter Goals Goal [...] documented as of this encounter Care Teams Mill Oiler Relationship Specialty Start Date End Date Leslie Riojas MD [address] [place] [address] PCP - General Internal Medicine 05/09/22 documented as of this encounter
--- OUTSIDE RECORDS SUMMARY | 2025-02-28 08:32 | XMS_ITS | Encounter Summary ---
Author Organization [facility] [employer] Address 75 [facility] 7t [place] [address] Care Team Providers Care Spinning Frame Changer Name Role Phone Leslie Riojas MD Primary Care Provider [phone] Encounter Details Date Type Department Care Team (Late st Contact Info) Description 07/03/2023 Orders Only [facility] CHC MED & PEDS [address] [place], [place] [phone] Ashley Slaughter, PharmD [address] [place] [address] Social History Tobacco Use Types Packs/Day Years [...] Care Team (Late st Contact Info) Description 03/22/2025 10:15 AM EST Office Visit [facility] ADULT DENTAL [address] [place] [address] Leila Otto 03/29/2025 9:00 AM EST Office Visit [facility] MED & PEDS 505 [place] [address] Leslie Riojas MD 505 [place] [address] documented as of this encounter Goals Goal [...] documented as of this encounter Care Teams Spinning Frame Changer Relationship Specialty Start Date End Date Leslie Riojas MD [address] [place] [address] PCP - General Internal Medicine 05/09/22 documented as of this encounter
--- OUTSIDE RECORDS SUMMARY | 2025-02-28 08:32 | XMS_ITS | Encounter Summary ---
Author Organization [employer] Address 75 [facility] 7 [place] [address] Care Team Providers Care Chocolatier Name Role Phone Leslie Riojas MD Primary Care Provider [phone] Reason for Visit * Reason Comments Med Refill Encounter Details Date Type Department Care Team ([facility] st Contact Info) Description 02/26/2025 Refill [facility] CHC MED & PEDS [address] [place], [place] [phone] Leslie Riojas MD 505 [place] [address] Primary hypertension; Type 2 diabetes mellitus with other circulatory complication, without long-term current use of insulin (HCC) Social History Tobacco Use Types Packs/Day Years [...] Description 03/22/2025 10:15 AM EST Office Visit [facility] ADULT DENTAL [address] [place] [address] Leila Otto 03/29/2025 9:00 AM EST Office Visit [facility] MED & PEDS [address] [place] [address] Leslie Riojas MD 505 [place] [address] documented as of this encounter Goals Goal Patient Goal Type Associated Problems Recent Progress Patient-Stated? Author Blood Pressure < 140/90 Blood Pressure 140/70(2024 9:49 AM EDT) No Von Cope, PharmD Patient will adhere to medication regimen General No Von Cope, PharmD Hemoglobin A1c < 7 Result Component 6.4( 10:04 AM EDT) No Von Cope, PharmD documented as of this encounter Visit Diagnoses Diagnosis Primary hypertension Unspecified essential hypertension Type 2 diabetes mellitus with other circulatory complication, without long-term current use of insulin (HCC) documented in this encounter Additional Health Concerns Assessment Noted Time PHQ-9 Depression Total Score: 9 07/16/19 25 11:34 AM EDT documented as of this encounter Care Teams Chocolatier Relationship Specialty Start Date End Date Leslie Riojas MD [address] [place] [address] PCP - General Internal Medicine 05/09/22 documented as of this encounter
--- OUTSIDE RECORDS SUMMARY | 2025-02-28 08:32 | XMS_ITS | Clinical Summary ---
Author Organization [facility] ity Address [address] [place] [address] Care Team Providers Care Rehab Aid Name Role Phone Unavailable Primary Care Provider [...]
--- OUTSIDE RECORDS SUMMARY | 2025-02-28 08:33 | XMS_ITS | Encounter Summary ---
Author Organization [employer] Address 75 [facility] 7 [place] [address] Care Team Providers Care Care Center Manager Name Role Phone Leslie Riojas MD Primary Care Provider [phone] Encounter Details Date Type Department Care Team ([facility] st Contact Info) Description 12/05/2022 Orders Only [facility] CHC MED & PEDS [address] [place], [place] [phone] Leslie Riojas MD [address] [place] [address] Social History Tobacco Use Types Packs/Day Years [...] still 0 12/05/2022 10:45 AM EDT Kayla Oabndo Becoming easily annoyed or irritable 2 11/26 [...] Description 03/22/2025 10:15 AM EST Office Visit [facility] ADULT DENTAL [address] [place] [address] Leila Otto 03/29/2025 9:00 AM EST Office Visit [facility] MED & PEDS [address] [place] [address] Leslie Riojas MD [address] [place] [address] documented as of this encounter Goals Goal Patient Goal Type Associated Problems Recent Progress Patient-Stated? Author Blood Pressure < 140/90 Blood Pressure 140/70(2024 9:49 AM EDT) No SaturninologVon green, PharmD Patient will adhere to medication regimen General No Dellogono, Von, PharmD Hemoglobin A1c < 7 Result Component 6.4( 10:04 AM EDT) No DellogonoVanis, PharmD documented as of this encounter Visit Diagnoses Not on filedocumented in this encounter Additional Health Concerns Assessment Noted Time PHQ-9 Depression Total Score: 14 023 10:45 AM EDT documented as of this encounter Care Teams Care Center Manager Relationship Specialty Start Date End Date Leslie Riojas MD [address] [place] [address] PCP - General Internal Medicine 05/09/22 documented as of this encounter
--- OUTSIDE RECORDS SUMMARY | 2025-02-28 08:33 | XMS_ITS | Encounter Summary ---
Author Organization [employer] Address [address] [facility] 7 [place] [address] Care Team Providers Care Hydropulper Name Role Phone Leslie Riojas MD Primary Care Provider [phone] Reason for Visit * Reason Comments Med Refill Encounter Details Date Type Department Care Team ([facility] Contact Info) Description 04/07/2024 Refill [facility] CHC MED & PEDS [address] [place], [place] [phone] Leslie Riojas MD [address] [place] [address] Social History Tobacco Use Types Packs/Day Years [...] 03/22/2025 10:15 AM EST Office Visit [facility] ADULT DENTAL [address] [place] [address] Leila Otto 03/29/2025 9:00 AM EST Office Visit [facility] MED & PEDS [address] [place] [address] Leslie Riojas MD [address] [place] [address] documented as of this encounter Goals Goal [...] documented as of this encounter Care Teams Hydropulper Relationship Specialty Start Date End Date Leslie Riojas MD [address] [place] [address] PCP - General Internal Medicine 05/09/22 documented as of this encounter
--- OUTSIDE RECORDS SUMMARY | 2025-02-28 08:33 | XMS_ITS | Encounter Summary ---
Author Organization [facility] Address 75 [facility] 7 [place] [address] Care Team Providers Care Service Center Technician Name Role Phone Leslie Riojas MD Primary Care Provider [phone] Reason for Visit * Reason Onset Date Comments Nurse Triage 11/26/2022 Encounter Details Date Type Department Care Team ([facility] st Contact Info) Description 11/26/2022 Telephone [facility] MEDICINE [address] [place] [address] Leslie Riojas MD [address] [place] [address] Nurse Triage Social History Tobacco Use Types [...] 11/26/2022 10:29 AM EDT Triage call with Harney Custodial Aide ID [id number] Pt was seen in [facility] 11/20/22 for vein procedure on right leg. [...] had a Vein Procedure on 11/18 in [facility]. Flora states pt is having pain due to catheter. PCP Shine documented in this encounter Plan of Treatment Upcoming Encounters Date Type Department Care Team (Late st Contact Info) Description 03/22/2025 10:15 AM EST Office Visit [facility] ADULT DENTAL [address] [place] [address] Leila Otto 03/29/2025 9:00 AM EST Office Visit [facility] MED & PEDS [address] [place] [address] Leslie Riojas MD [address] [place] [address] documented as of this encounter Goals Goal [...] documented as of this encounter Care Teams Service Center Technician Relationship Specialty Start Date End Date Leslei Riojas MD [address] [place] [address] PCP - General Internal Medicine 05/09/22 documented as of this encounter
--- OUTSIDE RECORDS SUMMARY | 2025-02-28 08:33 | XMS_ITS | Clinical Summary ---
Author Organization [facility] Address [address] [facility] [address] [place] [address] Phone Care Team Providers Care Fly Raiser Lockstitch Name Role Phone Leslie Riojas MD Primary Care Provider [phone] Allergies No known active allergies Medications carvedilol [...] this topic Medical Devices Implanted Type Area Prevention Rn Device Identifier Shelf Expiration Date Model / Serial / Lot Stent Absolute Pro 10mm 40mm 80cm .035in Otw Vascular Nickel Titanium Self-Expanding External Iliac Artery Tri Axial Radiopaque Marker Sterile Disp - [id number] Implanted:Qty: 1 on 11/18/2022 by Kal Maradiaga DO at [facility] Stent Arterial [employer] [id number] 05/28/2023 [id number] / / [id number] Description:Rt Common iliac artery stent Insurance MEDICARE REPLACEMENT MEDICARE REPLACEMENT MEDICARE REPLACEMENT MEDICARE REPLACEMENT MEDICARE REPLACEMENT MEDICARE REPLACEMENT Advance Directives For more information, please contact: [phone] (9AM - 5PM [place], Friday-Friday) * Full Code (Latest Code Status on File) Date Activated Date Inactivated Comments 11/18/2022 6:55 AM Question Answer Comments Code Status Confirmed With: Patient Code Status Communicated To: Other (specify belo w) Code Discussion Comments: Per MD Maradiaga Care Teams Fly Raiser Lockstitch Relationship Specialty Start Date End Date Leslie Riojas MD [address] [place] [address] PCP - General Internal Medicine 10/28/22 Additional Source Comments The information contained in this document represents components of the legal health record. It is not the complete legal health record.[facility]
--- OUTSIDE RECORDS SUMMARY | 2025-02-28 08:33 | XMS_ITS | Encounter Summary ---
Author Organization [employer] Address 75 [facility] 7 [place] [address] Care Team Providers Care Powder Guard Name Role Phone Leslie Riojas MD Primary Care Provider [phone] Encounter Details Date Type Department Care Team ([facility] Contact Info) Description 02/21/2025 Results Follow-Up [facility] CHC MED & PEDS [address] [place], [place] [phone] Leslie Riojas MD [address] [place] [address] CT Head w/o Contrast Social History Tobacco Use Types Packs/Day Years [...] Description 03/22/2025 10:15 AM EST Office Visit [facility] ADULT DENTAL [address] [place] [address] Leila Otto 03/29/2025 9:00 AM EST Office Visit [facility] MED & PEDS [address] [place] [address] Leslie Riojas MD [address] [place] [address] documented as of this encounter Goals Goal [...] documented as of this encounter Care Teams Powder Guard Relationship Specialty Start Date End Date Leslie Riojas MD [address] [place] [address] PCP - General Internal Medicine 05/09/22 documented as of this encounter"
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
--- OUTSIDE RECORDS SUMMARY | 2025-02-28 08:33 | XMS_ITS | Encounter Summary ---
Author Organization [employer] Address [address] [facility] 7 [place] [address] Care Team Providers Care Environmental Health Inspector Name Role Phone Leslie Riojas MD Primary Care Provider [phone] Reason for Visit * Reason Comments Med Refill Encounter Details Date Type Department Care Team ([facility] Contact Info) Description 12/16/2024 Refill [facility] [address] [place], [place] [phone] Leslie Riojas MD [address] [place] [address] Social History Tobacco Use Types Packs/Day Years [...] the past 12 months, has t he [employer], gas, oil or water company threatened to [...] [facility] [address] [place] [address] Leila Otto 03/29/2025 9:00 AM EST Office Visit [facility] [address] [place] [address] Leslie Riojas MD [address] [place] [address] documented as of this encounter Goals Goal [...] documented as of this encounter Care Teams Environmental Health Inspector Relationship Specialty Start Date End Date Leslie Riojas MD [address] [place] [address] PCP - General Internal Medicine 05/09/22 documented as of this encounter
--- OUTSIDE RECORDS SUMMARY | 2025-02-28 08:33 | XMS_ITS | Patient Health Record ---
Author Organization Kolton Stafford MD PA Address [address] [place], [place] [id number] Care Team Providers Care Law Secretary Name Role Phone Kolton Stafford Primary Care Provider [phone] Reason For Referral No Information Medications Medication [...] Status W/U Status Risk Notes Problem Anemia (292025935) Anemia, unspecified (D64.9) Active confirmed PO Iron Problem Polyneuropathy due to type 2 diabetes mellitus (367561948) Type 2 diabetes mellitus with diabetic polyneuropathy (E11.42) Active confirmed Neuropathic symptoms Controlled with Current dosage of Gabapentin, Will Re-Assess/ad dress if symptoms demand, DM Controlled with Current dosage of , Will Continue same dose and Monitor Problem Type 2 diabetes mellitus with peripheral angiopathy (993763262) Type 2 diabetes mellitus with diabetic peripheral angiopathy without gangrene (E11.51) Active confirmed Problem Type II diabetes mellitus without complication (199184215) Type 2 diabetes mellitus without complications (E11.9) Active confirmed Problem Mixed hyperlipidemia (640619068) Mixed hyperlipidemia (E78.2) Active confirmed Controlled with Current dosage of , Will Continue same dose and Monitor Problem Severe recurrent major depression without psychotic features (70051592) Major depressive disorder, recurrent severe without psychotic features (F33.2) Active confirmed Functioning okay with Lexapro, Will Continue to Monitor, Will Re-Assess/ad dress if symptoms demand Problem Essential hypertension (95910303) Essential (primary) hypertension (I10) Active confirmed Controlled with Current dosage of Amlodipine, Will Continue same dose and Monitor Problem Angina (566181910) Atherosclerotic heart disease of viejas coronary artery with unspecified angina pectoris (I25.119) Active confirmed Will Re-Assess/ad dress if symptoms demand Problem Hypertrophic obstructive cardiomyopathy (47317146) Obstructive hypertrophic cardiomyopathy (I42.1) Active confirmed will refer to cardiology Problem Bilateral atherosclerosis of arteries of lower limbs (disorder) (0077258635472953 7) Unspecified atherosclerosis of viejas arteries of extremities, bilateral legs (I70.203) Active confirmed Problem Body mass index 30.00 to 34.99 (532010438325781) Body mass index (BMI) 33.0-33.9, adult (Z68.33) [...] Insured Coverage Start Date Coverage End Date [facility] [address] [address] [place], [place] [phone] [id number] Edilma Stone Self - patient is the insured 0 Medical (General) History Medical History History ICD Code Diabetes Mellitus Dxed @ 2000 anxiety/Depression, since atleast 1989, used to see psychaitry in [place] hyperlipdemia hypertension Vascular Studies - Arterial Doppler Lower Limbs 02/2020 - bilateral plaques, biphasic waves, ELIOT 0.8 right and 0.9 left, diminished Peak velodity along right CREATIVE SPECIALIST suggest mild to moderate proximal aortoiliac narrowing, 50-69% narrowing left CREATIVE SPECIALIST and left proximal popliteal, hypodense structure left [...]
--- OUTSIDE RECORDS SUMMARY | 2025-02-28 08:33 | XMS_ITS | Encounter Summary ---
Author Organization [employer] Address [address] [facility] 7 [place] [address] Care Team Providers Care Clerical Order Filler Name Role Phone Leslie Riojas MD Primary Care Provider [phone] Reason for Visit * Reason Comments Med Refill Encounter Details Date Type Department Care Team ([facility] Contact Info) Description 02/01/2025 Refill [facility] [address] [place], [place] [phone] Leslie Riojas MD [address] [place] [address] Gastroesophageal reflux disease without esophagitis Social History [...] the past 12 months, has t he [email or web address], gas, oil or water [employer] threatened to shut off services in your [...] Description 03/22/2025 10:15 AM EST Office Visit [facility] ADULT [facility] [address] [place] [address] Leila Otto 03/29/2025 9:00 AM EST Office Visit [facility] [address] [place] [address] Leslie Riojas MD [address] [place] [address] documented as of this encounter Goals Goal [...] documented as of this encounter Care Teams Clerical Order Filler Relationship Specialty Start Date End Date Leslie Riojas MD [address] [place] [address] PCP - General Internal Medicine 05/09/22 documented as of this encounter
--- OUTSIDE RECORDS SUMMARY | 2025-02-28 08:33 | XMS_ITS | Encounter Summary ---
Author Organization [employer] [facility] Address [address] [facility] [address]t [place] [address] Care Team Providers Care Wet Process Miller Name Role Phone Leslie Riojas MD Primary Care Provider [phone] Encounter Details Date Type Department Care Team ([facility] Contact Info) Description 09/11/2022 Telephone [facility] MED & PEDS [address] [place], [place] [phone] Leslie Riojas MD [address] [place] [address] Social History Tobacco Use Types Packs/Day Years [...] Department Care Team (Late Contact Info) Description 03/22/2025 10:15 AM EST Office Visit [facility] ADULT D[facility] [address] [place] [address] Leila Otto 03/29/2025 9:00 AM EST Office Visit [facility] [address] [place] [address] Leslie Riojas MD [address] [place] [address] documented as of this encounter Goals Goal [...] documented as of this encounter Care Teams Wet Process Miller Relationship Specialty Start Date End Date Leslie Riojas MD [address] [place] [address] PCP - General Internal Medicine 05/09/22 documented as of this encounter
--- OUTSIDE RECORDS SUMMARY | 2025-02-28 08:33 | XMS_ITS | Encounter Summary ---
Author Organization [employer] Address [address] [facility] [address] [place] [address] Care Team Providers Care Director Of Accounts Payable Name Role Phone Leslie Riojas MD Primary Care Provider [phone] Reason for Visit * Reason Comments Med Refill Encounter Details Date Type Department Care Team ([facility] Contact Info) Description 04/07/2024 Refill [facility] PEDS [address] [place], [place] [phone] Leslie Riojas MD [address] [place] [address] Social History Tobacco Use Types Packs/Day Years [...] Description 03/22/2025 10:15 AM EST Office Visit [facility] [address] [place] [address] Leila Otto 03/29/2025 9:00 AM EST Office Visit [facility] [address] [place] [address] Leslie Riojas MD [address] [place] [address] documented as of this encounter Goals Goal [...] documented as of this encounter Care Teams Director Of Accounts Payable Relationship Specialty Start Date End Date Leslie Riojas MD [address] [place] [address] PCP - General Internal Medicine 05/09/22 documented as of this encounter
--- OUTSIDE RECORDS SUMMARY | 2025-02-28 08:34 | XMS_ITS | Encounter Summary ---
Author Organization [employer] Address [address] 7 [place] [address] Care Team Providers Care Senior Sales Operations Analyst Name Role Phone Leslie Riojas MD Primary Care Provider [phone] Reason for Visit * Reason Comments Med Refill Encounter Details Date Type Department Care Team ([facility] Contact Info) Description 04/25/2024 Refill [facility] CH[facility] MED & PEDS [address] [place], [place] [phone] Leslie Riojas MD [address] [place] [address] Social History Tobacco Use Types Packs/Day Years [...] 10:15 AM EST Office Visit [facility] ADULT DENTAL [address] [place] [address] Leila Otto 03/29/2025 9:00 AM EST Office Visit [facility] MED & PEDS [address] [place] [address] Leslie Riojas MD [address] [place] [address] documented as of this encounter Goals Goal [...] documented as of this encounter Care Teams Senior Sales Operations Analyst Relationship Specialty Start Date End Date Leslie Riojas MD [address] [place] [address] PCP - General Internal Medicine 05/09/22 documented as of this encounter
--- OUTSIDE RECORDS SUMMARY | 2025-02-28 08:34 | XMS_ITS | Encounter Summary ---
Author Organization [facility] Address [address] [place] [address] [place] [address] Phone Care Team Providers Care Dryer Operator Name Role Phone Leslie Riojas MD Primary Care Provider [phone] Encounter Details Date Type Department Care Team ([facility] st Contact Info) Description 11/18/2022 Procedure Pass [facility] [address] [place] [address] Social History Tobacco Use Types Packs/Day Years [...] on filedocumented in this encounter Care Teams Dryer Operator Relationship Specialty Start Date End Date Leslie Riojas MD [address] [place] [address] PCP - General Internal Medicine 10/28/22 documented as of this encounter Additional Source Comments The information contained in this document represents components of the legal health record. It is not the complete legal health record.[facility]
[2025-02-28 13:12] LABS: Hematocrit 37.4 % (37.0-47.0); Hemoglobin 11.5 g/dl (12.0-16.0); Mean Corpuscular HGB Conc 30.7 g/dl (31.0-35.0); Mean Corpuscular Hemoglobin 25.7 pg (27.0-33.0); Mean Corpuscular Volume 83.5 fL (80.0-98.0); NRBC Abs Auto 0.000 X10*3/uL (0.0-0.012); NRBC Pct Auto 0.0 /100WBC (0.0-0.2); Platelet Count 153 X10*3/uL (160-400); Red Blood Count 4.48 X10*6/uL (4.20-5.50); White Blood Count 5.6 X10*3/uL (4.8-10.8)
[2025-02-28 13:35] LABS: Alanine Aminotransferase 16 U/L (0-31); Albumin Level 4.8 g/dL (3.5-5.0); Alkaline Phosphatase 67 U/L (39-117); Anion Gap 10 (12-20); Aspartate Amino Transferase 23 U/L (5-31); Blood Urea Nitrogen 28 mg/dL (9-16); Calcium 9.9 mg/dL (8.4-10.2); Carbon Dioxide 31 mmol/L (22-29); Chloride 102 mmol/L (96-108); Cholesterol 152 mg/dL (<200); Estimated Glomerular Filt Rate 54; HDL Cholesterol 54 mg/dL (>40); Magnesium 1.9 mg/dL (1.6-2.6); Potassium 3.9 mmol/L (3.3-5.1); Sodium 139 mmol/L (135-145); Total Protein 7.8 g/dL (6.5-8.0); Triglycerides 154 mg/dL (<150)
[2025-02-28 13:51] LABS: Reflex LDLD? No
[2025-02-28 13:54] LABS: Ferritin 19 ng/mL (10-250)
[2025-02-28 13:59] LABS: Folate > 20.0 ng/mL (> or = 4.0); Vitamin B12 271 pg/mL (200-900)
== END 2025-02-28 08:19 | disposition home or self-care (01) ==
LOC: HO.HKASLDS 08:18
PROVIDERS: PCP Pediatrics; Visit Provider Physician Assistant Medical
DX: Z13.1 Encounter for screening for diabetes mellitus (principal); Z13.6 Encounter for screening for cardiovascular disorders; G47.33 Obstructive sleep apnea (adult) (pediatric); G47.19 Other hypersomnia; R68.89 Other general symptoms and signs; R53.83 Other fatigue
CPT/HCPCS: 36415; 80053; 80061; 82306; 82607; 82728; 82746; 83036; 83090; 83735; 83921; 84443; 85027

== ENCOUNTER 2025-03-09 09:54 | Outpatient (AMB) | payer OTHER, SELFPAY ==
[2025-03-09 10:26] VITALS: BP 112/58; PULSE 71; O2SAT 97; BMI 29.5
--- NOTE | 2025-03-09 10:26 | MHC.OFFVIS ---
Vital Signs 03/09/25 10:26 Height 5 ft Weight 151 lb 4 oz BMI 29.5 BP 112/58 L Blood Pressure Location Lt brachial Position Sitting Pulse 71 Pulse Source Pulse Oximeter Pulse Oximetry (%) 97 Oxygen Delivery Method Room Air Intake Visit Reasons: 3mnth (CONF.) Intake Note: Patient presents follow up REJI. Compliance in chart(90/90days, >=4hrs-61%, Average Usage-4hr 59min, Pressure-12cm, Med Leaks-58.3, AHI-1.9). Advisor Advocate Angel Co Founder Required: Yes Advisor Advocate Angel Co Founder Services: Advisor Advocate Angel Co Founder Offered & Declined Advisor Advocate Angel Co Founder Name: Daughter Information Interpreted: non-clinical & clinical Accompanied by: Daughter Allergies No Known Allergies Allergy (Verified 03/09/25 10:29) HPI Comments Details: 74 y/o Maltese speaking female patient presents for a f/u of REJI. Flora her daughter is here today and helps with history. The CPAP compliance report reviewed (11/2024- 02/2025). The usage days 90/90 and > 4 hours is 4 hours and 59min. Med press [id number], med leaks 58.3, residual AHI was 1.9/hr. She washes her mask, rinses hoses, changes filters and fills reservoir with water daily. CT scan and MRI reviewed with pt 9mm r. ethmoid sinus cyst, will refer to ENT. She uses the machine all night long however it displays less than 4 hours used in the morning, machine is not working properly and needs a optical lab technician to come look at the machine. She has a full face mask with chin straps, and her mouth gets very dry at night, feels congested, causing her to have poor sleep, we discussed adjusting humidification settings today, she likes the pressures. She is chronically fatigued when she wakes up in the mornings, she does not take naps through out the day. She lives with her daughter and requires help with all her ADLs. She has T2DM, and RLS symptoms worse at night with paresthesias and sensitivity to heat and cold bilaterally in feet, managed with Gabapentin. She started monjarou subq weekly 2.5mg 2 months ago and A1cs have improved. Her memory is poor at baseline, forgetful, gets depressed, she has a fear of leaving the house alone, denies v/h hallucinations, she takes Aricept per Psychiatrist. Mood is stable, has sun-downing seeing her therapist 2x a month. Due to low BP she feels dizzy while walking and when dehydrated, and or going up the stairs. She has headaches, loses her balance or falls over, and she is mindful of staying well hydrated, taking her medications on time now, along with switching positions slowly. [facility] Medical History CAD (coronary artery disease) FHx: total knee replacement Surgical History Stented coronary artery Family History Mother Depression Family/Other Depression Social History Alcohol intake: never Patient Tobacco Use Status: Never used Tobacco Physical Exam Vital Signs: Last Vital Signs Pulse 71 03/09/25 10:26 BP 112/58 L 03/09/25 10:26 Pulse Ox 97 03/09/25 10:26 Oxygen Delivery Method Room Air 03/09/25 10:26 BMI result Body Mass Index 29.5 Const General: cooperative, comfortable and no acute distress Nutritional Appearance: average body habitus Orientation/consciousness: patient oriented x3 Limitations: language barrier HEENT Face and sinus: Yes face symmetric Teeth and gingiva: other (mallampti score is 3) Eyes Pupils: Equal, round and reactive pupils present Resp Effort & Inspection: normal respiratory effort and able to speak in complete sentences Neuro Other: uses cane to ambulate. General: patient oriented x3 and moves all extremities Cranial nerves: Yes Facial sensation intact/muscles of mastication intact, Yes Equal, round and reactive pupils present, Yes Normal accommodation reflex present, Yes Normal facial strength present, Yes Midline tongue present, Yes Ability to bilaterally rotate head present and Yes Ability to bilaterally elevate shoulders present Gait exam (Neuro): Antalgic gait present and Assistive device used Motor exam (neuro): Abnormal motor strength present and Abnormal muscle tone present Coordination: oklqgm-kn-lonr test normal Psych Appearance: grossly normal Speech and movement: Other speech and movement exam findings present (Psych) (language barrier) Attitude: cooperative Thought process: Normal thought process present Thought content: Normal thought content present Results Reviewed Results Reviewed: CT/CT head/brain wo IV con IMPRESSION: 1. No acute intracranial abnormality. 2. There is no evidence of cribriform plate dehiscence. The abnormality on recent MRI relates to a mucous retention cyst in the right posterior ethmoid air cells. MRI MR/MR head/brain wo con IMPRESSION: No acute stroke/nonhemorrhagic ischemia or acute intracranial hemorrhage. Nonspecific T2 FLAIR white matter signal. Questionable dehiscence , right cribriform plate. Recommend CT paranasal sinuses Assessment & Plan Assessment & Plan (1) Excessive daytime sleepiness: Code(s): G47.19 - Other hypersomnia Category: Medical (2) REJI on CPAP: Comment: Severe degree of sleep apnea. The AHI was 28/hr and oxygen kenyon was 78% Code(s): G47.33 - Obstructive sleep apnea (adult) (pediatric) Category: Medical (3) Forgetfulness: Comment: MMSE is 25 Code(s): R68.89 - Other general symptoms and signs Category: Medical (4) Insomnia: Comment: continue melatonin 5 mg po 3 hours prior to bedtime. Code(s): G47.00 - Insomnia, unspecified Category: Medical Qualifiers: Insomnia type: unspecified Qualified Code(s): G47.00 - Insomnia, unspecified (5) Neck pain on right side: Comment: PT Code(s): M54.2 - Cervicalgia Category: Medical (6) Neck pain on left side: Code(s): M54.2 - Cervicalgia Category: Medical (7) Chronic nasal congestion: Code(s): R09.81 - Nasal congestion Category: Medical (8) Cyst of ethmoid sinus: Code(s): J34.1 - Cyst and mucocele of nose and nasal sinus Category: Medical (9) REJI (obstructive sleep apnea): Code(s): G47.33 - Obstructive sleep apnea (adult) (pediatric) Category: Medical (10) History of difficulty sleeping: Code(s): Z72.821 - Inadequate sleep hygiene Category: Medical (11) Low vitamin B12 level: Code(s): E53.8 - Deficiency of other specified B group vitamins Category: Medical Plan CTscan reviewed with pt. today for r. ethmoid sinus cyst, will refer to ENT for evaluation. Reji on cpap, will write rx for chins straps, has tried, xylitol for dry mouth, and humidification for dry mouth/ congestion. Rx for new machine, as her machine is showing she is using the machine nightly less than 4 hours, despite using it all night. MMSE was 25, still forgetful, she was started on Aricept by her psychiatrist. PT for neck pain L>R shoulder pain. RLS symptoms, continue gabapentin 800mg at bedtime, Labs reviewed with pt b12 is low / normal, start b12 1000 mcg every other night at bedtime, start magnesium 400mg every other night at bedtime, may hold for loose stools. Vitamin D 1000units/25mcg daily, mood irritability, due to low Vit D. Compliance 3month- f/u Orders: Orders PT Evaluation and Treatment Today M54.2 - Cervicalgia Referrals Ear/Nose/Throat Referral G47.30 - Sleep apnea, unspecified, J34.1 - Cyst and mucocele of nose and nasal sinus, R09.81 - Nasal congestion Medications: New magnesium oxide 400 mg PO DAILY 90 tabs 0RF RLS 3 months MDD 400mg G47.33 - Obstructive sleep apnea (adult) (pediatric), Z72.821 - Inadequate sleep hygiene cholecalciferol (vitamin D3) 25 mcg PO DAILY 90 caps 0RF low vitamin d 3 months MDD 1000unit G47.19 - Other hypersomnia, G47.33 - Obstructive sleep apnea (adult) (pediatric) mecobalamin (vitamin B12) place tablet under tongue and allow to dissolve for at least30 secs before swallowing 1,000 mcg sublingual BEDTIME 90 tabs 0RF fatigue 3 months MDD 1000mcg E53.8 - Deficiency of other specified B group vitamins Patient Instructions: ENT evaluation of r. ethmoid cyst due to ongoing congestion and breathing difficulties at night. Coding Level of Care Code Est Pt Level 4 (19456) Diagnoses Excessive daytime sleepiness G47.19 REJI on CPAP G47.33 Forgetfulness R68.89 Insomnia, unspecified type G47.00 Insomnia type: unspecified Neck pain on right side M54.2 Neck pain on left side M54.2 Chronic nasal congestion R09.81 Cyst of ethmoid sinus J34.1 REJI (obstructive sleep apnea) G47.33 History of difficulty sleeping Z72.821 Low vitamin B12 level E53.8
--- OUTSIDE RECORDS SUMMARY | 2025-03-09 11:31 | XMS_ITS | Encounter Summary ---
Author Organization [employer] Address [address] [facility] 7t [place] [address] Care Team Providers Care It Specialist Name Role Phone Leslie Riojas MD Primary Care Provider [phone] Encounter Details Date Type Department Care Team ([facility] Contact Info) Description 02/21/2025 Results Follow-Up [facility] CHC MED & PEDS [address] [place], [place] [phone] Leslie Riojas MD [address] [place] [address] CT Head w/o Contrast Social History Tobacco [...] Description 03/22/2025 10:15 AM EST Office Visit [facility] ADULT DENTAL [address] [place] [address] Leila Otto 03/29/2025 9:00 AM EST Office Visit [facility] MED & PEDS [address] [place] [address] Leslie Riojas MD [address] [place] [address] documented as of this encounter Goals Goal Patient Goal Type Associated Problems Recent Progress Patient-Stated? Author Blood Pressure < 140/90 Blood Pressure 140/70(2024 9:49 AM EDT) No Von Cope, PharmD Patient will adhere to medication regimen General No Von Cope, PharmD Hemoglobin A1c < 7 Result Component 6.2( 8:24 AM EST) No Von Cope, PharmD documented as of this encounter Visit Diagnoses Not on filedocumented in this encounter Additional Health Concerns Assessment Noted Time PHQ-9 Depression Total Score: 9 07/16/19 25 11:34 AM EDT documented as of this encounter Care Teams It Specialist Relationship Specialty Start Date End Date Leslie Riojas MD [address] [place] [address] PCP - General Internal Medicine 05/09/22 documented as of this encounter
--- OUTSIDE RECORDS SUMMARY | 2025-03-09 11:31 | XMS_ITS | Encounter Summary ---
Author Organization [employer] Address [address] [facility] 7t [place] [address] Care Team Providers Care Drink Mixer Name Role Phone Leslie Riojas MD Primary Care Provider [phone] Encounter Details Date Type Department Care Team ([facility] st Contact Info) Description 07/16/2024 Orders Only [facility] CHC MED & PEDS [address] [place] [address] Provider, MD Val Social History Tobacco Use [...] Visit [facility] ADULT DENTAL [address] [place] [address] Leila Otto 03/29/2025 9:00 AM EST Office Visit [facility] MED & PEDS [address] [place] [address] Leslie Riojas MD [address] [place] [address] documented as of this encounter Goals Goal Patient Goal Type Associated Problems Recent Progress Patient-Stated? Author Blood Pressure < 140/90 Blood Pressure 140/70(2024 9:49 AM EDT) No Von Cope, PharmD Patient will adhere to medication regimen General No Dellogono, Von, PharmD Hemoglobin A1c < 7 Result Component 6.2( 8:24 AM EST) No SaturninologVon green, PharmD documented as of this encounter [...] documented as of this encounter Care Teams Drink Mixer Relationship Specialty Start Date End Date Leslie Riojas MD [address] [place] [address] PCP - General Internal Medicine 05/09/22 documented as of this encounter
--- OUTSIDE RECORDS SUMMARY | 2025-03-09 11:31 | XMS_ITS | Encounter Summary ---
Author Organization [employer] Address [address] [facility] 7t [place] [address] Care Team Providers Care Industrial Custodian Name Role Phone Leslie Riojas MD Primary Care Provider [phone] Encounter Details Date Type Department Care Team (Late st Contact Info) Description 07/03/2023 Orders Only [facility] CHC MED & PEDS [address] [place], [place] [phone] Ashley Slaughter, PharmD [address] [place] [address] Social History Tobacco Use Types Packs/Day Years [...] Description 03/22/2025 10:15 AM EST Office Visit [facility] ADULT DENTAL [address] [place] [address] Leila Otto 03/29/2025 9:00 AM EST Office Visit [facility] MED & PEDS [address] [place] [address] Leslie Riojas MD [address] [place] [address] documented as of this encounter Goals Goal Patient Goal Type Associated Problems Recent Progress Patient-Stated? Author Blood Pressure < 140/90 Blood Pressure 140/70(2024 9:49 AM EDT) No DellogVan greenis, PharmD Patient will adhere to medication regimen General No Dellogono, Von, PharmD Hemoglobin A1c < 7 Result Component 6.2( 8:24 AM EST) No Dellogono Von, PharmD documented as of this encounter Visit Diagnoses Not on filedocumented in this encounter Additional Health Concerns Assessment Noted Time PHQ-9 Depression Total Score: 6 06/25/19 10:18 AM EST documented as of this encounter Care Teams Industrial Custodian Relationship Specialty Start Date End Date Leslie Riojas MD [address] [place] [address] PCP - General Internal Medicine 05/09/22 documented as of this encounter
--- OUTSIDE RECORDS SUMMARY | 2025-03-09 11:31 | XMS_ITS | Encounter Summary ---
Author Organization [employer] Address [address] [facility] 7t [place] [address] Care Team Providers Care County Historian Name Role Phone Leslie Riojas MD Primary Care Provider Encounter Details Date Type Department Care Team ([facility] st Contact Info) Description 12/05/2022 Orders Only [facility] CHC MED & PEDS [address] [place], [place] [phone] Leslie Riojas MD [address] [place] [address] Social History Tobacco Use Types Packs/Day Years [...] 2 11/26 10:45 AM Kayla Lara * How difficult have these problems made it for you to do your work, take care of things at home, or get along with other people? Answer Date of Assessment Author Very difficult 12/05/2022 10:45 AM EDKayla Marcano * Over the last 2 weeks, how often have you been bothered by any of the following problems? Question Answer Date of Assessment Author Feeling nervous, anxious, or on edge 3 11/26 10:45 AM Kayla Lara Not being able to stop or co ntrol worrying 0 12/05/2022 10:45 AM Kayla Lara Worrying too much about diff erent things 0 12/05/2022 10:45 AM EDKayla Marcano Trouble relaxing 1 12/05/2022 10:45 AM ANITAT Kayla Obando Being so restless that it is hard to sit still 0 12/05/2022 10:45 AM Kayla Lara Becoming easily annoyed or irritable 2 11/26 10:45 AM Kayla Lara Feeling afraid as if somethi ng awful might happen 1 12/05/2022 10:45 AM Kayla Lara NEGRA-7 Total Score 7 12/05/2022 10:45 AM Kayla Lara * Over the past 2 weeks, how often have you been bothered by any of the following problems? Question Answer Date of Assessment Author Little interest or pleasure in doing things Not at all 12/05/2022 10:45 AM Supriya Lara Feeling down, depressed, or hopeless More than half the days 12/05/2022 10:45 AM Kayla Lara Trouble falling or staying asleep, or sleeping [...] family down Several days 12/05/2022 10:45 AM Kayla Lara Trouble concentrating on things, such as reading [...] 03/22/2025 10:15 AM EST Office Visit [facility] ADULT DENTAL [address] [place] [address] Leila Otto 03/29/2025 9:00 AM EST Office Visit [facility] MED & PEDS [address] [place] [address] Leslie Riojas MD [address] [place] [address] documented as of this encounter Goals Goal Patient Goal Type Associated Problems Recent Progress Patient-Stated? Author Blood Pressure < 140/90 Blood Pressure 140/70(2024 9:49 AM EDT) No Von Cope, PharmD Patient will adhere to medication regimen General No DellogonoVanis, PharmD Hemoglobin A1c < 7 Result Component 6.2( 8:24 AM EST) No DellogonoVanis, PharmD documented as of this encounter Visit Diagnoses Not on filedocumented in this encounter Additional Health Concerns Assessment Noted Time PHQ-9 Depression Total Score: 14 023 10:45 AM EDT documented as of this encounter Care Teams County Historian Relationship Specialty Start Date End Date Leslie Riojas MD [address] [place] [address] PCP - General Internal Medicine 05/09/22 documented as of this encounter
--- OUTSIDE RECORDS SUMMARY | 2025-03-09 11:31 | XMS_ITS | Clinical Summary ---
Author Organization [facility] Address [address] [place] [address] Care Team Providers Care Jewelry Repairer Name Role Phone Unavailable Primary Care Provider [...] Screening 1950 Colorectal Cancer Screening: Colonoscopy 1950 Diabetes: Annual Foot Exam 01/01/1962 Diabetes: Annual Retina Eye Exam 01/01/1962 RSV Immunization Adult Patients (1 - Risk 50-74 years 1-dose series) 01/01/2002 Cholesterol Screening (Lipid Panel) 05/22/2023 Falls Risk Assessment 05/22/2023 Hepatitis C Screening 05/22/2023 Osteoporosis Screening (Bone Density Screening) 05/22/2023 Social Influencers of Health Screening 05/22/2023 Depression Screening 04/28/2024 COVID-19 Vaccine ( season) 2024 10/09/2021, 01/19/2021, 07/18/2020, Additional history exists Diabetes: Annual Urine Albumin-Creatinine Ratio (uACR) 03/08/2025 Diabetes: Blood Sugar Control Test (HGBA1C) 08/28/2025 02/28/2025, 12/23/2024, 04/14/2024, Additional history exists Diabetes: Annual GFR (Glomerular Filtration Rate) 02/28/2026 02/28/2025, 09/16/2022, 09/15/2022, Additional history exists Hypertension/CHF/CAD Annual BMP Blood Test 02/28/2026 02/28/2025, 09/16/2022, 09/15/2022, Additional history exists DTaP,Tdap,and Td Vaccines (2 - Td or Tdap) 10/08/2032 [...] to complete this topic RSV Immunization Patients Under 20 months Aged Out No longer eligible based on patient's age to complete this topic Varicella Vaccines Aged Out No longer eligible based on patient's age to complete this topic
--- OUTSIDE RECORDS SUMMARY | 2025-03-09 11:33 | XMS_ITS | Encounter Summary ---
Author Organization [employer] Address [address] [facility] 7 [place] [address] Care Team Providers Care Dust Brush Assembler Name Role Phone Leslie Riojas MD Primary Care Provider [phone] Reason for Visit * Reason Comments Med Refill Encounter Details Date Type Department Care Team ([facility] Contact Info) Description 12/16/2024 Refill [facility] CHC MED & PEDS [address] [place], [place] [phone] Leslie Riojas MD [address] [place] [address] Social History Tobacco Use Types Packs/Day Years [...] the past 12 months, has t he [employer], gas, oil or water company threatened to [...] 03/22/2025 10:15 AM EST Office Visit [facility] ADULT DENTAL [address] [place] [address] Leila Otto 03/29/2025 9:00 AM EST Office Visit [facility] MED & PEDS [address] [place] [address] Leslie Riojas MD [address] [place] [address] documented as of this encounter Goals Goal [...] documented as of this encounter Care Teams Dust Brush Assembler Relationship Specialty Start Date End Date Leslie Riojas MD [address] [place] [address] PCP - General Internal Medicine 05/09/22 documented as of this encounter
--- OUTSIDE RECORDS SUMMARY | 2025-03-09 11:33 | XMS_ITS | Encounter Summary ---
Author Organization [employer] [facility] Address [address] [facility] 7t [place] [address] Care Team Providers Care Dip Stand Loader Name Role Phone Leslie Riojas MD Primary Care Provider [phone] Encounter Details Date Type Department Care Team ([facility] Contact Info) Description 09/11/2022 Telephone [facility] MED & PEDS [address] [place], [place] [phone] Leslie Riojas MD [address] [place] [address] Social History Tobacco Use Types Packs/Day Years [...] Description 03/22/2025 10:15 AM EST Office Visit [facility] ADULT DENTAL [address] [place] [address] Leila Otto 03/29/2025 9:00 AM EST Office Visit [facility] MED & PEDS [address] [place] [address] Leslie Riojas MD [address] [place] [address] documented as of this encounter Goals Goal [...] documented as of this encounter Care Teams Dip Stand Loader Relationship Specialty Start Date End Date Leslie Riojas MD [address] [place] [address] PCP - General Internal Medicine 05/09/22 documented as of this encounter
--- OUTSIDE RECORDS SUMMARY | 2025-03-09 11:33 | XMS_ITS | Encounter Summary ---
Author Organization [employer] Address [address] [facility] 7 [place] [address] Care Team Providers Care Radio Communications Mechanician Name Role Phone Leslie Riojas MD Primary Care Provider [phone] Reason for Visit * Reason Comments Med Refill Encounter Details Date Type Department Care Team ([facility] Contact Info) Description 04/25/2024 Refill [facility] CHC MED & PEDS [address] [place], [place] [phone] Leslie Riojas MD [address] [place] [address] Social History Tobacco Use Types Packs/Day Years [...] [facility] ADULT DENTAL [address] [place] [address] Leila Otto 03/29/2025 9:00 AM EST Office Visit [facility] MED & PEDS [address] [place] [address] Leslie Riojas MD [address] [place] [address] documented as of this encounter Goals Goal Patient Goal Type Associated Problems Recent Progress Patient-Stated? Author Blood Pressure < 140/90 Blood Pressure 140/70(2024 9:49 AM EDT) No DellogVon green, PharmD Patient will adhere to medication regimen General No DellogonoVanis, PharmD Hemoglobin A1c < 7 Result Component 6.2( 8:24 AM EST) No DellogVon green, PharmD documented as of this encounter Visit Diagnoses Not on filedocumented in this encounter Additional Health Concerns Assessment Noted Time PHQ-9 Depression Total Score: 6 06/25/19 10:18 AM EST documented as of this encounter Care Teams Radio Communications Mechanician Relationship Specialty Start Date End Date Leslie Riojas MD [address] [place] [address] PCP - General Internal Medicine 05/09/22 documented as of this encounter
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
--- OUTSIDE RECORDS SUMMARY | 2025-03-09 11:33 | XMS_ITS | Encounter Summary ---
Author Organization [employer] Address [address] [facility] 7 [place] [address] Care Team Providers Care Education Site Manager Name Role Phone Leslie Riojas MD Primary Care Provider [phone] Reason for Visit * Reason Comments Med Refill Encounter Details Date Type Department Care Team ([facility] Contact Info) Description 02/01/2025 Refill [facility] CH[facility] MED & PEDS [address] [place] [employer], [place] [phone] Leslie Riojas MD [address] [place] [address] Gastroesophageal reflux disease without esophagitis Social History [...] the past 12 months, has t he [employer], oil or [employer] threatened to shut off services in your [...] 10:15 AM EST Office Visit [facility] ADULT DENTAL [address] [place] [address] Leila Otto 03/29/2025 9:00 AM EST Office Visit [facility] MED & PEDS [address] [place] [address] Leslie Riojas MD [address] [place] [address] documented as of this encounter Goals Goal Patient Goal Type Associated Problems Recent Progress Patient-Stated? Author Blood Pressure < 140/90 Blood Pressure 140/70(2024 9:49 AM EDT) No Von Cope, PharmD Patient will adhere to medication regimen General No Von Cope, PharmD Hemoglobin A1c < 7 Result Component 6.2( 8:24 AM EST) No Von Cope PharmD documented as of this encounter Visit Diagnoses Diagnosis Gastroesophageal reflux disease without esophagitis Esophageal reflux documented in this encounter Additional Health Concerns Assessment Noted Time PHQ-9 Depression Total Score: 9 07/16/19 25 11:34 AM EDT documented as of this encounter Care Teams Education Site Manager Relationship Specialty Start Date End Date Leslie Riojas MD [address] [place] [address] PCP - General Internal Medicine 05/09/22 documented as of this encounter
--- OUTSIDE RECORDS SUMMARY | 2025-03-09 11:33 | XMS_ITS | Encounter Summary ---
Author Organization [employer] Address [address] [facility] 7 [place] [address] Care Team Providers Care Manufacturing Process Technician Name Role Phone Leslie Riojas MD Primary Care Provider [phone] Reason for Visit * Reason Comments Med Refill Encounter Details Date Type Department Care Team ([facility] Contact Info) Description 04/07/2024 Refill [facility] MED & PEDS [address] [place], [place] [phone] Leslie Riojas MD [address] [place] [address] Social History Tobacco Use Types Packs/Day Years [...] [facility] [address] [place] [address] Leila Otto 03/29/2025 9:00 AM EST Office Visit [facility] MED & PEDS [address] [place] [address] Leslie Riojas MD [address] [place] [address] documented as of this encounter Goals Goal [...] documented as of this encounter Care Teams Manufacturing Process Technician Relationship Specialty Start Date End Date Leslie Riojas MD [address] [place] [address] PCP - General Internal Medicine 05/09/22 documented as of this encounter
--- OUTSIDE RECORDS SUMMARY | 2025-03-09 11:33 | XMS_ITS | Patient Health Record ---
Author Organization Kolton Stafford MD PA Address [address] [facility] [address] [place], [place] [id number] Care Team Providers Care Executive Staff Assistant Name Role Phone Kolton Stafford Primary Care Provider [phone] Reason For Referral No Information Medications Medication [...] Status W/U Status Risk Notes Problem Anemia (354991902) Anemia, unspecified (D64.9) Active confirmed PO Iron Problem Polyneuropathy due to type 2 diabetes mellitus (285789770) Type 2 diabetes mellitus with diabetic polyneuropathy (E11.42) Active confirmed Neuropathic symptoms Controlled with Current dosage of Gabapentin, Will Re-Assess/ad dress if symptoms demand, DM Controlled with Current dosage of , Will Continue same dose and Monitor Problem Type 2 diabetes mellitus with peripheral angiopathy (772430290) Type 2 diabetes mellitus with diabetic peripheral angiopathy without gangrene (E11.51) Active confirmed Problem Type II diabetes mellitus without complication (626510723) Type 2 diabetes mellitus without complications (E11.9) Active confirmed Problem Mixed hyperlipidemia (960197493) Mixed hyperlipidemia (E78.2) Active confirmed Controlled with Current dosage of , Will Continue same dose and Monitor Problem Severe recurrent major depression without psychotic features (15066077) Major depressive disorder, recurrent severe without psychotic features (F33.2) Active confirmed Functioning okay with Lexapro, Will Continue to Monitor, Will Re-Assess/ad dress if symptoms demand Problem Essential hypertension (40274220) Essential (primary) hypertension (I10) Active confirmed Controlled with Current dosage of Amlodipine, Will Continue same dose and Monitor Problem Angina (247950612) 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) Active confirmed Will Re-Assess/ad dress if symptoms demand Problem Hypertrophic obstructive cardiomyopathy (15612703) Obstructive hypertrophic cardiomyopathy (I42.1) Active confirmed will refer to cardiology Problem Bilateral atherosclerosis of arteries of lower limbs (disorder) (6745718001997606 7) Unspecified atherosclerosis of [place] arteries of extremities, bilateral legs (I70.203) Active confirmed Problem Body mass index 30.00 to 34.99 (574389708168293) Body mass index (BMI) 33.0-33.9, adult (Z68.33) [...] Insured Coverage Start Date Coverage End Date [facility] [address] [address] [place], [place] [id number] [phone] [id number] Edilma Stone Self - patient is the insured 0 Medical (General) History Medical History History ICD Code Diabetes Mellitus Dxed @ 2000 anxiety/Depression, since atleast 1989, used to see psychaitry in [place] hyperlipdemia hypertension Vascular Studies - Arterial Doppler Lower Limbs 02/2020 - bilateral plaques, biphasic waves, ELIOT 0.8 right and 0.9 left, diminished Peak velodity along right BUSINESS PROCESS REPRESENTATIVE suggest mild to moderate proximal aortoiliac narrowing, 50-69% narrowing left BUSINESS PROCESS REPRESENTATIVE and left proximal popliteal, hypodense structure left [...]
--- OUTSIDE RECORDS SUMMARY | 2025-03-09 11:33 | XMS_ITS | Encounter Summary ---
Author Organization [facility] Address [address] [place] [address] [place] [phone] Phone Care Team Providers Care Administrative Volunteer Name Role Phone Leslie Riojas MD Primary Care Provider [phone] Encounter Details Date Type Department Care Team ([facility] st Contact Info) Description 11/18/2022 Procedure [facility] [address] [place] [address] Social History Tobacco Use Types Packs/Day Years [...] on filedocumented in this encounter Care Teams Administrative Volunteer Relationship Specialty Start Date End Date Leslie Riojas MD [address] [place] [address] PCP - General Internal Medicine 10/28/22 documented as of this encounter Additional Source Comments The information contained in this document represents components of the legal health record. It is not the complete legal health record.[facility]
--- OUTSIDE RECORDS SUMMARY | 2025-03-09 11:33 | XMS_ITS | Encounter Summary ---
Author Organization [employer] Address [address] [facility] 7 [place] [address] Care Team Providers Care Knockout Machine Operator Name Role Phone Leslie Riojas MD Primary Care Provider [phone] Reason for Visit * Reason Comments Med Refill Encounter Details Date Type Department Care Team ([facility] Contact Info) Description 04/07/2024 Refill [facility] CHC MED & PEDS [address] [place], [place] [phone] Leslie Riojas MD [address] [place] [address] Social History Tobacco Use Types Packs/Day Years [...] 03/22/2025 10:15 AM EST Office Visit [facility] ADULT D[facility]AL [address] [place] [address] Leila Otto 03/29/2025 9:00 AM EST Office Visit [facility] MED & PEDS [address] [place] [address] Leslie Riojas MD [address] [place] [address] documented as of this encounter Goals Goal Patient Goal Type Associated Problems Recent Progress Patient-Stated? Author Blood Pressure < 140/90 Blood Pressure 140/70(2024 9:49 AM EDT) No DellogVon green, PharmD Patient will adhere to medication regimen General No DellogonoaVnis, PharmD Hemoglobin A1c < 7 Result Component 6.2( 8:24 AM EST) No DellogVon green, PharmD documented as of this encounter Visit Diagnoses Not on filedocumented in this encounter Additional Health Concerns Assessment Noted Time PHQ-9 Depression Total Score: 6 06/25/19 10:18 AM EST documented as of this encounter Care Teams Knockout Machine Operator Relationship Specialty Start Date End Date Leslie Riojas MD [address] [place] [address] PCP - General Internal Medicine 05/09/22 documented as of this encounter
--- OUTSIDE RECORDS SUMMARY | 2025-03-09 11:33 | XMS_ITS | Clinical Summary ---
Author Organization [facility] Address [address] [facility] [address] [place] [address] Phone Care Team Providers Care Bed Setter Name Role Phone eLslie Riojas MD Primary Care Provider [phone] Allergies No known active allergies Medications carvedilol [...] patient's age to complete this topic IPV VACCINES Aged Out No longer eligi ble based on patient's age to complete this topic MENINGOCOCCAL VACCINES (ACWY) Aged Out No longer eligible based on patient's age to complete this topic MENINGOCOCCAL VACCINES (B) Aged Out N o longer eligible based on patient's age to complete this topic Medical Devices Implanted Type Area Urgent Care Physician Assistant Device Identifier Shelf Expiration Date Model / Serial / Lot Stent Absolute Pro 10mm 40mm 80cm .035in Otw Vascular [employer] Titanium Self-Expanding External Iliac Artery Tri Axial Radiopaque Marker Sterile Disp - [id number] Implanted:Qty: 1 on 11/18/2022 by Kal Maradiaga DO at [facility] Stent Arterial [employer] [id number] 05/28/2023 [id number] / / [id number] Description:Rt Common iliac artery stent Insurance MEDICARE REPLACEMENT MEDICARE REPLACEMENT MEDICARE REPLACEMENT MEDICARE REPLACEMENT MEDICARE REPLACEMENT MEDICARE REPLACEMENT Advance Directives For more information, please contact: [phone] (9AM - 5PM [facility], Friday-Friday) * Full Code (Latest Code Status on File) Date Activated Date Inactivated Comments 11/18/2022 6:55 AM Question Answer Comments Code Status Confirmed With: Patient Code Status Communicated To: Other (specify cortes sheppard) Code Discussion Comments: Per MD Maradiaga Care Teams Bed Setter Relationship Specialty Start Date End Date Leslie Riojas MD [address] [place] [address] PCP - General Internal Medicine 10/28/22 Additional Source Comments The information contained in this document represents components of the legal health record. It is not the complete legal health record.[facility]
--- OUTSIDE RECORDS SUMMARY | 2025-03-09 11:33 | XMS_ITS | Encounter Summary ---
Author Organization [facility] Address [address] [facility] 7 [place] [address] Care Team Providers Care Coating Operator Name Role Phone Leslie Riojas MD Primary Care Provider [phone] Reason for Visit * Reason Onset Date Comments Nurse Triage 11/26/2022 Encounter Details Date Type Department Care Team ([facility] st Contact Info) Description 11/26/2022 Telephone [facility] MEDICINE [address] [place] [address] Leslie Riojas MD [address] [place] [address] Nurse Triage Social History Tobacco Use Types [...] 11/26/2022 10:29 AM EDT Triage call with [employer] [place] ID [id number] Pt was seen in [facility] 11/20/22 for vein procedure on right [...] had a Vein Procedure on 11/18 in [facility]. Flora states pt is having pain due to catheter. PCP Shine documented in this encounter Plan of Treatment Upcoming Encounters Date Type Department Care Team (Late st Contact Info) Description 03/22/2025 10:15 AM EST Office Visit [facility] ADULT DENTAL [address] [place] [address] Leila Otto 03/29/2025 9:00 AM EST Office Visit [facility] MED & PEDS [address] [place] [address] Leslie Riojas MD [address] [place] [address] documented as of this encounter Goals Goal [...] documented as of this encounter Care Teams Coating Operator Relationship Specialty Start Date End Date Leslie Riojas MD [address] [place] [address] PCP - General Internal Medicine 05/09/22 documented as of this encounter
== END 2025-03-09 11:10 | disposition home or self-care (01) ==
LOC: HO.HSMC 09:54
PROVIDERS: PCP Pediatrics; Visit Provider Physician Assistant Medical
DX: G47.19 Other hypersomnia (principal); G47.33 Obstructive sleep apnea (adult) (pediatric); R68.89 Other general symptoms and signs; G47.00 Insomnia, unspecified; M54.2 Cervicalgia; R09.81 Nasal congestion; J34.1 Cyst and mucocele of nose and nasal sinus; Z72.821 Inadequate sleep hygiene; E53.8 Deficiency of other specified B group vitamins
CPT/HCPCS: 99214

== ENCOUNTER → 2025-03-09 09:54 | Outpatient (BNVA) | payer OTHER, SELFPAY | PROVIDERS: PCP Pediatrics; Visit Provider Physician Assistant Medical | DX: G47.33 Obstructive sleep apnea (adult) (pediatric) (principal); Z99.89 Dependence on other enabling machines and devices; G47.19 Other hypersomnia; M54.2 Cervicalgia; R09.81 Nasal congestion; J34.1 Cyst and mucocele of nose and nasal sinus; Z72.821 Inadequate sleep hygiene; E53.8 Deficiency of other specified B group vitamins | CPT/HCPCS: 99212 ==